=== PATIENT | male | born 1935 | race African-American/Black ===

== ENCOUNTER 2024-12-20 14:38 | Outpatient (CLI) | payer MEDICARE, SELFPAY ==
--- OUTSIDE RECORDS SUMMARY | 2010-01-04 05:45 | XMS_ITS | Continuity of Care Document ---
Author Organization [facility] Address [address] [place] [address] Phone Care Team Providers Care Final Application Reviewer Name Role Phone Mehrdad Florian Unavailable Unavailable Procedures Procedure Date Office/outpatient Visit, Est Optic Nerve Head Eval IPO Reduced 15% Fundus Photography W/ Report Eye Exam & Treatment Refraction Optic Nerve Head Eval IPO Reduced 15% Office/outpatient Visit, Est Optic Nerve Head Eval IPO Reduced 15% Visual Field Examination-Professional Romaine Visual Field Examination(s) Office/outpatient Visit, Est Optic Nerve Head Eval IPO Reduced 15% No Script Office/outpatient Visit, Est Optic Nerve Head Eval IPO Reduced 15% No Script Visual Field Examination-Professional Romaine -2008 Visual Field Examination(s) Office/outpatient Visit, Est Optic Nerve Head Eval Office/outpatient Visit, Est Optic Nerve Head Eval Office/outpatient Visit, Est Optic Nerve Head Eval Office/outpatient Visit, Est Fundus Photography W/ Report Optic Nerve Head Eval Visual Functional Status Assessed Visual Field Examination-Professional No v- Visual Field Examination(s) Office/outpatient Visit, Est Optic Nerve Head Eval Office/outpatient Visit, Est Advance Directives Directive Yes / No Effective Date File Name No Information Encounters Encounter Description Practice Location Reason(s) For Visit Diagnoses Date Provider Providers Copied on Encounter Office/outpat ient Visit, Est [facility], [address] [place] [address] [address], [place], [place], [address], tel:[phone] [facility] No Information 0 Chiqui Cronin. [address] [place] [address] , [address], [place], [place], [facility], . tel:[phone] Referring Provider: Mehrdad Davis, [address] [place] [address] [address], [place], [place], [facility]. tel:[phone] [facility], [address] [place] [address] [address], [place], [place], [address], [place] tel:[phone] [facility] No Information 0 0 Chiqui Cronin. [address] [place] [address] , [address], [place], [place], [facility], [place]. tel:[phone] Office/outpat ient Visit, Est [facility], [address] [place] [address] [address], [place], [place], [address], [place] tel:[phone] [facility] No Information 0 Krishnasamy Laron. [address] [place] [address] [address], [place], [place], [facility], [place]. tel:[phone] [facility], [address], [place], [place], [address], [place] tel:[phone] [facility] No Information 0 Krishnasamy Laron. [address], [address], [place]. tel:[phone] Referring Provider: Laron majano, [address] [place], [place] [address]ate [place] [address], [place], [facility]. tel:[phone] [facility], [address], [place], [place], [address], [place] tel:[phone] [facility] No Information 2-201 0 Krishnasamy Laron. [address] [place], [place] [address]ate [address], [facility], [place]. tel:[phone] Referring Provider: Laron majano, [address] [place] [address], [place], [facility]. tel:[phone] Office/outpat ient Visit, [facility], [address] [place] [address] [address], [place], [place], [address], [place] tel:[phone] [facility] No Information 5-200 9 Krishnasamy Laron. [address] [place] [address], [facility], [place]. tel:[phone] Office/outpat ient Visit, [facility], [address] [place] [address] [address], [place], [place], [address], [place] tel:[phone] [facility] No Information 2-200 9 Krishnasamy Laron. [address] [place], [place] [address]ate [address], [facility], [place]. tel:[phone] [facility], [address] [place] [address] [address], [place], [place], [address], [place] tel:[phone] [facility] No Information 3-200 9 Krishnasamy Laron. [address] [place] [address], [facility], [place]. tel:[phone] Referring Provider: Laron majano, [facility] Corporate [facility] [address], [place], [address]. tel:[phone] [facility], [address] [place] [address] [address], [place], [place], [address], [place] tel:[phone] [facility] No Information 9 Krishnasamy Laron. [address] [place], [place] [address]ate [facility] [address], [place], [facility], [place]. tel:[phone] Referring Provider: Laron majano, [address] [place], [place] [address]ate [facility] [address], [place], [facility]. tel:[phone] Office/outpat ient Visit, [facility], [address] [place] [address] [address], [place], [place], [address], [place] tel:[phone] [facility] No Information -200 8 Krishnasamy Laron. [address] [place], [place] [address]ate [address], [facility], [place]. tel:[phone] Office/outpat ient Visit, [facility], [address] [place] [address] [address], [place], [place], [address], [place] tel:[phone] [facility] No Information 8 Krishnasamy Laron. [address] [place], [place] [address]ate [facility] [address], [place], [facility], [place]. tel:[phone] Office/outpat ient Visit, [facility], [address] [place] [address] [address], [place], [place], [address], [place] tel:[phone] [facility] No Information 5- 8 Tg Jung. [address] [facility], [address], [place], [place], [address], [place]. tel:[phone] Office/outpat ient Visit, Est [facility], [address], [place], [place], [address], [place] tel:[phone] [facility] No Information 1-200 7 Wandavie Jung. [address], [place], [address], [place]. tel:[phone] Referring Provider: Erich Antionekaitlinbelkis Ryan, [address] [place], [address] . tel:[phone] [facility], [address], [place], [place], [address], tel:[phone] [facility] No Information 0-200 7 Wankbelkis Jung. [address], [place], [address], [place]. tel:[phone] Referring Provider: Erich Davis, [address], [place], [address] . tel:[phone] [facility], [address], [place], [place], [address], [place] tel:[phone] [facility] No Information 5-200 7 Wandavie Jung. [address], [address] [place], [address], [place]. tel:[phone] Referring Provider: Erich aDvis, [address] [place], [address] . tel:[phone] Office/outpat ient Visit, Est [facility], [address], [place], [place], [address], [place] tel:[phone] [facility] No Information 0-200 7 Wankbelkis Jung. [address], [place], [place], [address], [place]. tel:[phone] Office/outpat ient Visit, [facility], [address], [place], [place], [address], [place] tel:[phone] [facility] No Information 3-200 7 Tg Jung. [address], [address], [place], [place], [address], [place]. tel:[phone] Family History Family Member Type Diagnosis Age At Onset No Information Payers Payer name Insurance type Covered green party ID Authoriza tion(s) [place] [id number] [facility] Out Of State [id number] Social History Type Description Quantity Date Captured Comments Sex Male Smoking Status No Information Chief Complaint And Reason For Visit No Information Reason For Referral Reason For Referral No Information History Of Present Illness Encounter Date Complaint History Of Prese nt Illness No Information Functional Status Date Functional Assessmen t No Information Instructions Date Instruction Additional Infor mation No Information Assessments Type Assessment Date No Information Patient Care Teams Name Effective Dates (start - stop) Status Members No Information
--- OUTSIDE RECORDS SUMMARY | 2023-06-23 07:00 | XMS_ITS ---
Author Organization [facility] Address [address] [facility] [address] [facility] [address] [place] [address] Care Team Providers Care Piggyback Clerk Name Role Phone Yovanny Dominguez Unavailable [phone] Medications Medication SIG (Take, Route, Frequency, Duration) Notes Start Date End Date Status Calcitriol 0.25 MCG TAKE 1 CAPSULE BY [place] UTH EVERY DAY FOR 90 DAYS; Duration: 90 Active Vitamin D (Ergocalciferol) 1.25 MG (26239 UT) TAKE 1 CAPSULE BY MOUTH ONE TIME PER WEEK; Duration: 84 Active Social History Sex Assigned At : Social History Observation Description Sex Assigned At Male Encounters Encounter Location Date Provider Diagnosis [place] [facility] [address] [facility] 15 [place] [address] 06/23/2023 Yovanny Dominguez Chronic kidney disea se, stage 3a N18.31 ; Cyst of kidney, acquired N28.1 ; Essential (primary) hypertension I10 ; Proteinuria, unspecified R80.9 and Renal osteodystrophy N25.0 Assessments Encounter Date Diagnosis (ICD Code) Assessment Notes Treatment Notes Treatment Clinical Notes Section Notes 06/23/2023 Chronic kidney disease, stage 3a (ICD-10 - N18.31) 06/23/2023 Cyst of kidney, acquired (ICD-10 - N28.1) 06/23/2023 Essential (primary) hypertension (ICD-10 - I10) 06/23/2023 Proteinuria, unspecified (ICD-10 - R80.9) 06/23/2023 Renal osteodystrophy (ICD-10 - N25.0) Plan Of Treatment Next Appt Details Provider Name:Yovanny Dominguez , 12/30/2024 02:30:00 PM, [address] [facility], [facility] 15, [place], [address], Progress Notes * Brad SELLERS LDOB:1935 (89 yo M)Acc No.[id number]:06/23/2023 Progress Notes Patient: Brad BOSWELL Provider: Rhea GRECO MD, F.Ryan.Nazanin.P, F.A.S.N. :1935 A ge:87 Y S ex:Male Date:06/23/2023 Address:[address] [place] [address] Subjective: * Chief Complaints: * * Medical History: * Medications: T aking Vitamin D (Ergocalciferol) 1.25 MG (50713 UT) Capsule TAKE 1 CAPSULE BY MOUTH ONE TIME PER WEEK , Taking Calcitriol 0.25 MCG Capsule TAKE 1 CAPSULE BY MOUTH EVERY DAY FOR 90 DAYS Objective: * Vitals: Assessment: * Assessment: 1. C hronic kidney disease, stage 3a - N18.31 2 . C yst of kidney, acquired - N28.1 3 . E ssential (primary) hypertension - I10 4 . P roteinuria, unspecified - R80.9 5 . R enal osteodystrophy - N25.0 ? Plan: * Treatment: * Billing Information: * Visit Code: 34807 Office Visit, Est Pt., Level 4. * Procedure Codes: * Electronic signature of Raz Dominguez MD on 12/20/2024 at 02:48 PM CDT Sign off status: Pending * Provider: Rhea GRECO MD, Elijah.MorenaP, F.A.S.N. Date: 0 06/23/2023 Generated for Printing/Faxing/eTransmitting on: 02:48 PM CDT
--- OUTSIDE RECORDS SUMMARY | 2023-09-29 07:15 | XMS_ITS ---
Author Organization [facility] Address 1400 [facility] 61 [facility] [place] [address] [place] [address] Care Team Providers Care Volunteer Fire Fighter Name Role Phone Yovanny Dominguez Unavailable [phone] Medications Medication SIG (Take, Route, Frequency, Duration) Notes Start Date End Date Status Vitamin D (Ergocalciferol) 1.25 MG (84549 UT) TAKE 1 CAPSULE BY MOUTH ONE TIME PER WEEK; Duration: 84 Active Calcitriol 0.25 MCG TAKE 1 CAPSULE BY [place] UTH EVERY DAY FOR 90 DAYS; Duration: 90 Active Social History Sex Assigned At : Social History Observation Description Sex Assigned At Male Encounters Encounter Location Date Provider Diagnosis [place] [facility] 2043 [facility] 15 [place] [address] 09/29/2023 Yovanny Dominguez Chronic kidney disea se, [...] Name:Yovanny Singh , 12/30/2024 02:30:00 PM, 2043 [facility], [facility] [place] [address], [place], [address], Progress Notes * Brad SELLERS LDOB:1935 (89 yo M)Acc No.[id number]:09/29/2023 Progress Notes Patient: Brad BOSWELL Provider: Rhea GRECO MD, Elijah.MorenaP, F.A.S.N. :1935 A ge:87 Y S ex:Male Date:09/29/2023 Address:[address] [place] [address], [place] [address] Subjective: * Chief Complaints: * * Medical History: * Medications: T aking Vitamin D (Ergocalciferol) 1.25 MG (57409 UT) Capsule TAKE 1 CAPSULE BY MOUTH [...] Treatment: * Billing Information: * Visit Code: 44500 Office Visit, Est Pt., Level 4. * Procedure Codes: * Electronic signature of Raz Dominguez MD on 12/20/2024 at 02:47 PM CDT Sign off status: Pending * Provider: Rhea GRECO MD, LucreciaP, F.A.S.N. Date: 0 09/29/2023 Generated for Printing/Faxing/eTransmitting on: 02:47 PM CDT
--- OUTSIDE RECORDS SUMMARY | 2024-01-05 08:15 | XMS_ITS ---
Author Organization [facility] Address [address] [place] [address] [place] [address] Care Team Providers Care Ironer Machine Name Role Phone Raul Dominguezjit Unavailable [phone] Social History Sex Assigned At : Social History Observation Description Sex Assigned At Male Encounters Encounter Location Date Provider Diagnosis [place] [facility] 2043 [facility] 15 [place] [address] 01/05/2024 Yovanny Dominguez Chronic kidney disea se, [...] Name:Yovanny Singh , 12/30/2024 02:30:00 PM, 2043 [facility], [facility] 15, [place], [address], Progress Notes * Brad MOORE LDOB:1935 (89 yo M)Acc No.[id number]:01/05/2024 Progress Notes Patient: Brad BOSWELL Provider: Rhea GRECO MD, F.A.C.P, F.A.S.N. :1935 A ge:88 Y S ex:Male Date:01/05/2024 Address:[address] [place], [place] [address], [facility] Subjective: * Chief Complaints: * * Medical [...] Treatment: * Billing Information: * Visit Code: 88240 Office Visit, Est Pt., Level 4. * Procedure Codes: * Electronic signature of Raz Dominguez MD on 12/20/2024 at 02:48 PM CDT Sign off status: Pending * Provider: Rhea GRECO MD, F.A.C.P, F.A.S.N. Date: 03/06/2023 Generated for Printing/Faxing/eTransmitting on: 02:48 PM CDT
--- OUTSIDE RECORDS SUMMARY | 2024-03-29 07:30 | XMS_ITS ---
Author Organization [facility] Address [address] [place] [address] Care Team Providers Care Switchboard Receptionist Name Role Phone DominguezEliazarYovanny Unavailable [phone] Medications Medication SIG (Take, Route, Frequency, Duration) Notes Start Date End Date Status Calcitriol 0.25 MCG TAKE 1 CAPSULE BY MO UTH EVERY OTHER DAY; Duration: 90 Active Vitamin D (Ergocalciferol) 1.25 MG (82470 UT) TAKE 1 CAPSULE BY MOUTH ONCE A MONTH; Duration: 90 Activ e Social History Sex Assigned At : Social History Observation Description Sex Assigned At Male Problems Problem Type SNOMED Code ICD Code Onset Dates Problem Status W/U Status Risk Notes Problem Secondary hyperparathyroidism of renal origin (61218535) 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 [address], [place], [facility], Progress Notes * Brad SELLERS LDOB:1935 (89 yo M)Acc No.[id number]:03/29/2024 Progress Notes Patient: Brad BOSWELL Provider: Rhea GRECO MD, F.A.C.P, F.A.S.N. :1935 A ge:88 Y S ex:Male Date:03/29/2024 Address:[address] [place] [address] Subjective: * Chief Complaints: * * Medical History: * Medications: T aking Vitamin D (Ergocalciferol) 1.25 MG (03515 UT) Capsule TAKE 1 CAPSULE BY MOUTH [...] Treatment: * Billing Information: * Visit Code: 17596 Office Visit, Est Pt., Level 4. * Procedure Codes: * Electronic signature of Raz Dominguez MD on 12/20/2024 at 02:48 PM CDT Sign off status: Pending * Provider: Rhea GREOC MD, F.A.C.P, F.A.S.N. Date: 0 03/29/2024 Generated for Printing/Faxing/eTransmitting on: 1 02:48 PM CDT
--- OUTSIDE RECORDS SUMMARY | 2024-04-05 09:00 | XMS_ITS ---
Author Organization [facility] Address [address] [place] [address] Care Team Providers Care Laboratory Mechanical Technician Name Role Phone AlbertoEliazarYovanny Unavailable [phone] Social History Sex Assigned At : Social History Observation Description Sex Assigned At Male Problems Problem Type SNOMED Code ICD Code Onset Dates Problem Status W/U Status Risk Notes Problem Primary generalised osteoarthritis (101894252) Primary generalized (osteo)arthriti s (M15.0) Active confirmed Problem Diabetic renal disease (908612155) Type 2 diabetes mellitus with diabetic chronic kidney disease (E11.22) Active confirmed Encounters Encounter Location Date Provider Diagnosis [facility] [place] [facility] [address] [employer] [id number] 04/05/2024 Yovanny Dominguez Chronic kidney disea se, [...] Name:Yovanny Alberto , 12/30/2024 02:30:00 PM, 2043 [facility] 15[place], [address], Progress Notes * Brad SELLERS LDOB:1935 (89 yo M)Acc No.[id number]:04/05/2024 Progress Notes Patient: Brad BOSWELL Provider: Rhea GRECO MD, F.A.C.P, F.A.S.N. :1935 A ge:88 Y S ex:Male Date:04/05/2024 Address:[address] [place] [address] Subjective: * Chief Complaints: * * Medical [...] Treatment: * Billing Information: * Visit Code: 14086 Office Visit, Est Pt., Level 4. * Procedure Codes: * Electronic signature of Raz Dominguez MD on 12/20/2024 at 02:47 PM CDT Sign off status: Pending * Provider: Rhea GRECO MD, F.A.C.P, F.A.S.N. Date: 0 04/05/2024 Generated for Printing/Faxing/eTransmitting on: 1 02:47 PM CDT
--- OUTSIDE RECORDS SUMMARY | 2024-05-03 08:15 | XMS_ITS ---
Author Organization [facility] Address [address] [address] [place] [address] Care Team Providers Care Sales Representative [employer] Name Role Phone Alberto Yovanny Unavailable [phone] Social History Sex Assigned At : Social History Observation Description Sex Assigned At Male Problems Problem Type SNOMED Code ICD Code Onset Dates Problem Status W/U Status Risk Notes Problem Elevation of levels of liver transaminase levels (R74.01) Active confirmed Problem Hypernatremia (147743997) Hypernatremia (E87.0) Active confirmed Encounters Encounter Location Date Provider Diagnosis [place] [facility] 2043 [facility] 15 [place] [address] 05/03/2024 Yovanny Dominguez Chronic kidney disea se, [...] Name:Yovanny Alberto , 12/30/2024 02:30:00 PM, 2043 [facility], [facility] 15, [place], [address], Progress Notes * Brad SELLERS LDOB:1935 (89 yo M)Acc No.[id number]:05/03/2024 Progress Notes Patient: Brad BOSWELL Provider: Rhea GRECO MD, F.A.C.P, F.A.S.N. :1935 A ge:88 Y S ex:Male Date:05/03/2024 Address:[address] [place] [address] Subjective: * Chief Complaints: * * Medical [...] Treatment: * Billing Information: * Visit Code: 63814 Office Visit, Est Pt., Level 4. * Procedure Codes: * Electronic signature of Raz Dominguez MD on 12/20/2024 at 02:48 PM CDT Sign off status: Pending * Provider: Rhea GRECO MD, F.A.C.P, F.A.S.N. Date: 0 05/03/2024 Generated for Printing/Faxing/eTransmitting on: 1 02:48 PM CDT
--- OUTSIDE RECORDS SUMMARY | 2024-07-19 08:00 | XMS_ITS ---
Author Organization [facility] Address [address] [address] [place] [address] Care Team Providers Care Farm Contractor Buyer Name Role Phone Alberto Yovanny Unavailable [phone] Social History Sex Assigned At : Social History Observation Description Sex Assigned At Male Encounters Encounter Location Date Provider Diagnosis [place] [facility] 2043 [facility] 15 [place] [address] 07/19/2024 Yovanny Dominguez Chronic kidney disea se, [...] Name:Yovanny Dominguez , 12/30/2024 02:30:00 PM, 2043 [facility] 15[place], [address], Progress Notes * Brad SELLERS LDOB:1935 (89 yo M)Acc No.[id number]:07/19/2024 Progress Notes Patient: Bard BOSWELL Provider: Rhea GRECO MD, F.A.C.P, F.A.S.N. :1935 A ge:88 Y S ex:Male Date:07/19/2024 Address:[address] [place] [address] Subjective: * Chief Complaints: * * Medical [...] Treatment: * Billing Information: * Visit Code: 39788 Office Visit, Est Pt., Level 4. * Procedure Codes: * Electronic signature of Raz Dominguez MD on 12/20/2024 at 02:47 PM CDT Sign off status: Pending * Provider: Rhea GRECO MD, F.A.C.P, F.A.S.N. Date: 0 07/19/2024 Generated for Printing/Faxing/eTransmitting on: 1 02:47 PM CDT
--- OUTSIDE RECORDS SUMMARY | 2024-10-18 08:00 | XMS_ITS ---
Author Organization [facility] Address [address] [address] [place] [address] Care Team Providers Care Hair Machine Operator Name Role Phone Alberto Yovanny Unavailable [phone] Social History Sex Assigned At : Social History Observation Description Sex Assigned At Male Problems Problem Type SNOMED Code ICD Code Onset Dates Problem Status W/U Status Risk Notes Problem Vitamin D deficiency (81199386) Vitamin D deficiency, unspecified (E55.9) Active confirmed Encounters Encounter Location Date Provider Diagnosis [place] [facility] 2043 [facility] 15 [place] [address] 10/18/2024 Yovanny Dominguez Chronic kidney disea se, [...] Name:Yovanny Alberto , 12/30/2024 02:30:00 PM, [address], [address], Progress Notes * Brad SELLERS LDOB:1935 (89 yo M)Acc No.[id number]:10/18/2024 Progress Notes Patient: Brad BOSWELL Provider: Rhea GRECO MD, F.A.C.P, F.A.S.N. :1935 A ge:88 Y S ex:Male Date:10/18/2024 Address:[address] [place], [place] [id number] Subjective: * Chief Complaints: Objective: Assessment: * [...] Plan: * Billing Information: * Visit Code: 15379 Office Visit, Est Pt., Level 4. * Procedure Codes: * Electronic signature of Raz Dominguez MD on 12/20/2024 at 02:47 PM CDT Sign off status: Pending * Provider: Rhea GRECO MD, F.A.C.P, F.A.S.N. Date: 0 10/18/2024 Generated for Printing/Faxing/eTransmitting on: 02:47 PM CDT
--- OUTSIDE RECORDS SUMMARY | 2024-12-20 14:48 | XMS_ITS | Patient Health Record ---
Author Organization [facility] Address [address] [place] [address] Care Team Providers Care Blockmason Name Role Phone Yovanny Dominguez Unavailable [phone] Reason For Referral No Information Medications Medication SIG (Take, Route, Frequency, Duration) Notes Start Date End Date Status Calcitriol 0.25 MCG TAKE 1 CAPSULE BY MO UTH EVERY OTHER DAY; Duration: 90 Active Vitamin D (Ergocalciferol) 1.25 MG (37790 UT) TAKE 1 CAPSULE BY MOUTH ONCE A MONTH; Duration: 90 Activ e Social History Sex Assigned At : Social History Observation Description Sex Assigned At Male Problems Problem Type SNOMED Code ICD Code Onset Dates Problem Status W/U Status Risk Notes Problem Diabetic renal disease (003754923) Type 2 diabetes mellitus with diabetic chronic kidney disease (E11.22) Active confirmed Problem Vitamin D deficiency (45513307) Vitamin D deficiency, unspecified (E55.9) Active confirmed Problem Hypervitaminosis D (21971220) 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) Active confirmed Problem Essential hypertension (27904443) Essential (primary) hypertension (I10) Active confirmed Problem Primary generalised osteoarthritis (595302566) Primary generalized (osteo)arthritis (M15.0) Active confirmed Problem Renal osteodystrophy (36372564) Renal osteodystrophy (N25.0) Active confirmed Problem Secondary hyperparathyroidism of renal origin (48673925) Secondary hyperparathyroidism of renal origin (N25.81) Active confirmed Problem Acquired renal cysti c disease (575266289) Cyst of kidney, acquired (N28.1) Active confirmed Problem Proteinuria (12174409) Proteinuria, unspecified (R80.9) Active confirmed Problem Hypernatremia (829775647) Hypernatremia (E87.0) Active confirmed Problem Chronic kidney disease stage 3A (disorder) (646625262) Chronic kidney disease, stage 3a (N18.31) Active confirmed Problem Elevation of lev els of liver transaminase levels (R74.01) Active confirmed Encounters Encounter Location Date Provider Diagnosis [facility] [address] [place] [address] 01/05/2024 Yovanny Dominguez Chronic kidney disea se, stage 3a N18.31 ; Cyst of kidney, acquired N28.1 ; Essential (primary) hypertension I10 ; Proteinuria, unspecified R80.9 and Renal osteodystrophy N25.0 [facility] [address] [place] [address] 03/29/2024 Yovanny Dominguez Chronic kidney disea se, stage 3a N18.31 ; Cyst of kidney, acquired N28.1 ; Essential (primary) hypertension I10 ; Proteinuria, unspecified R80.9 ; Renal osteodystrophy N25.0 ; Elevation of levels of liver transaminase levels R74.01 ; 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 and 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 [facility] [address] [place] [address] 04/05/2024 Yovannyagustin Dominguez Chronic kidney disea se, stage 3a N18.31 ; Cyst of kidney, acquired N28.1 ; Essential (primary) hypertension I10 ; Proteinuria, unspecified R80.9 ; Renal osteodystrophy N25.0 ; 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 ; 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 ; Elevation of levels of liver transaminase levels R74.01 ; Primary generalized (osteo)arthritis M15.0 and Type 2 diabetes mellitus with diabetic chronic kidney disease E11.22 [facility] [address] [place] [address] 05/03/2024 Yovannyagustin Dominguez Chronic kidney disea se, stage 3a [...] liver transaminase levels R74.01 and Hypernatremia E87.0 [facility] [address] [place] [id number] 07/19/2024 Yovanny Dominguez Chronic kidney disea se, [...] liver transaminase levels R74.01 and Hypernatremia E87.0 [facility] [address] [address] 10/18/2024 Yovanny Dominguez Chronic kidney disea se, [...] Clinical Notes Section Notes 01/05/2024 Chronic kidney disea se, stage 3a (ICD-10 - N18.31) 03/29/2024 Cyst of kidney, acquired (ICD-10 - N28.1) 03/29/2024 Chronic kidney disea se, stage 3a (ICD-10 - N18.31) 04/05/2024 Cyst of kidney, acquired (ICD-10 - N28.1) 04/05/2024 Chronic kidney disea se, stage 3a (ICD-10 - N18.31) 05/03/2024 Chronic kidney disea se, stage 3a (ICD-10 - N18.31) 07/19/2024 Chronic kidney disea se, stage 3a (ICD-10 - N18.31) 10/18/2024 Chronic kidney disea se, stage 3a (ICD-10 - N18.31) 10/18/2024 Cyst of kidney, acquired (ICD-10 - N28.1) 07/19/2024 Cyst of kidney, acquired (ICD-10 - N28.1) 05/03/2024 Cyst of kidney, acquired (ICD-10 - N28.1) 04/05/2024 Essential (primary) hypertension (ICD-10 - I10) 03/29/2024 Essential (primary) hypertension (ICD-10 - I10) 01/05/2024 Cyst of kidney, acquired (ICD-10 - N28.1) 01/05/2024 Essential (primary) hypertension (ICD-10 - I10) 03/29/2024 Proteinuria, unspecified (ICD-10 - R80.9) 04/05/2024 Proteinuria, unspecified (ICD-10 - R80.9) 05/03/2024 Essential (primary) hypertension (ICD-10 - I10) 07/19/2024 Essential (primary) hypertension (ICD-10 - I10) 10/18/2024 Essential (primary) hypertension (ICD-10 - I10) 07/19/2024 Proteinuria, unspecified (ICD-10 - R80.9) 10/18/2024 Proteinuria, unspecified (ICD-10 - R80.9) 05/03/2024 Proteinuria, unspecified (ICD-10 - R80.9) 04/05/2024 Renal osteodystrophy (ICD-10 - N25.0) 03/29/2024 Renal osteodystrophy (ICD-10 - N25.0) 01/05/2024 Proteinuria, unspecified (ICD-10 - R80.9) 01/05/2024 Renal osteodystrophy (ICD-10 - N25.0) 03/29/2024 Elevation of levels of liver transaminase levels (ICD-10 - R74.01) 04/05/2024 Secondary hyperparathyroidism of renal origin (ICD-10 - N25.81) 05/03/2024 Renal osteodystrophy (ICD-10 - N25.0) 07/19/2024 Renal osteodystrophy (ICD-10 - N25.0) 10/18/2024 Renal osteodystrophy (ICD-10 - N25.0) 10/18/2024 Secondary hyperparathyroidism of renal origin (ICD-10 - N25.81) 07/19/2024 Secondary hyperparathyroidism of renal origin (ICD-10 - N25.81) 05/03/2024 Secondary hyperparathyroidism of renal origin (ICD-10 - N25.81) 04/05/2024 Hypervitaminosis D (ICD-10 - E67.3) 03/29/2024 Secondary hyperparathyroidism of renal origin (ICD-10 - N25.81) 03/29/2024 Hypervitaminosis D (ICD-10 - E67.3) 04/05/2024 Elevation of levels of liver transaminase levels (ICD-10 - R74.01) 05/03/2024 Hypervitaminosis D (ICD-10 - E67.3) 07/19/2024 Hypervitaminosis D (ICD-10 - E67.3) 10/18/2024 Hypervitaminosis D (ICD-10 - E67.3) 10/18/2024 Primary generalized (osteo)arthritis (ICD-10 - M15.0) 07/19/2024 Primary generalized (osteo)arthritis (ICD-10 - M15.0) 05/03/2024 Primary generalized (osteo)arthritis (ICD-10 - M15.0) 04/05/2024 Primary generalized (osteo)arthritis (ICD-10 - M15.0) 05/03/2024 Type 2 diabetes mellitus with diabetic chronic kidney disease (ICD-10 - E11.22) 04/05/2024 Type 2 diabetes mellitus with diabetic chronic kidney disease (ICD-10 - E11.22) 07/19/2024 Type 2 diabetes mellitus with diabetic chronic kidney disease (ICD-10 - E11.22) 10/18/2024 Type 2 diabetes mellitus with diabetic chronic kidney disease (ICD-10 - E11.22) 07/19/2024 Elevation of levels of liver transaminase levels (ICD-10 - R74.01) 10/18/2024 Elevation of levels of liver transaminase levels (ICD-10 - R74.01) 05/03/2024 Elevation of levels of liver transaminase levels (ICD-10 - R74.01) 05/03/2024 Hypernatremia (ICD-1 0 - E87.0) 10/18/2024 Hypernatremia (ICD-1 0 - E87.0) 07/19/2024 Hypernatremia (ICD-1 0 - E87.0) 10/18/2024 Vitamin D deficiency , unspecified (ICD-10 - E55.9) Plan Of Treatment Next Appt Details Provider Name:Yovanny Dominguez , 12/30/2024 02:30:00 PM, [address], [facility] [address], [place], [address],
--- OUTSIDE RECORDS SUMMARY | 2024-12-20 14:48 | XMS_ITS | Data Portability ---
Author Organization [place] [facility], Main Office Address [address] [place] [id number] Assessment Encounter Date Assessment Date Assessment LastModified by Organization Details LastModified Time 06/01/2023 06/01/2023 04/28/2022: ALP isoenzymes: 78% bone TSH/FT4/GGT/L ipids: WNL CMP: BUN 21/Cr 1.38, GFR 59, ALP 368H, bili t 1.70 CBC: WBC 4.0 07/28/2022: B12 >1000 Folate/TSH/FT 4/Lipids/CBC: WNL ALP 336, T bili 1.40 11/24/2022: BUN 20/Cr 1.45, GFR 56, ALP 312, bili t 1.50H CBC: WBC 4.1 05/25/2023: BUN 29, Cr 1.57, GFR 51, ALP 356, Bili 2.00H Not available 06/01/2023 12:17:17 10/05/2023 10/05/2023 04/28/2022: ALP isoenzymes: 78% bone TSH/FT4/GGT/L ipids: WNL CMP: BUN 21/Cr 1.38, GFR 59, ALP 368H, bili t 1.70 CBC: WBC 4.0 07/28/2022: B12 >1000 Folate/TSH/FT 4/Lipids/CBC: WNL ALP 336, T bili 1.40 11/24/2022: BUN 20/Cr 1.45, GFR 56, ALP 312, bili t 1.50H CBC: WBC 4.1 05/25/2023: BUN 29, Cr 1.57, GFR 51, ALP 356, Bili 2.00H 09/28/2023: Cr 1.37, ALP 299, Bili 1.80 [email or web address] [id number] Not available 10/04/2023 14:11:06 04/04/2024 04/04/2024 04/28/2022: ALP isoenzymes: 78% bone TSH/FT4/GGT/L ipids: WNL CMP: BUN 21/Cr 1.38, GFR 59, ALP 368H, bili t 1.70 CBC: WBC 4.0 07/28/2022: B12 >1000 Folate/TSH/FT 4/Lipids/CBC: WNL ALP 336, T bili 1.40 11/24/2022: BUN 20/Cr 1.45, GFR 56, ALP 312, bili t 1.50H CBC: WBC 4.1 05/25/2023: BUN 29, Cr 1.57, GFR 51, ALP 356, Bili 2.00H 09/28/2023: Cr 1.37, ALP 299, Bili 1.80 04/01/2024: Na 146, Cr 1.43, GFR 57, ALP 283, Bili 1.70H WBC 3.9L [email or web address] [id number] Not available 04/04/2024 11:58:09 07/04/2024 07/04/2024 04/28/2022: ALP isoenzymes: 78% bone TSH/FT4/GGT/L ipids: WNL CMP: BUN 21/Cr 1.38, GFR 59, ALP 368H, bili t 1.70 CBC: WBC 4.0 07/28/2022: B12 >1000 Folate/TSH/FT 4/Lipids/CBC: WNL ALP 336, T bili 1.40 11/24/2022: BUN 20/Cr 1.45, GFR 56, ALP 312, bili t 1.50H CBC: WBC 4.1 05/25/2023: BUN 29, Cr 1.57, GFR 51, ALP 356, Bili 2.00H 09/28/2023: Cr 1.37, ALP 299, Bili 1.80 04/01/2024: Na 146, Cr 1.43, GFR 57, ALP 283, Bili 1.70H WBC 3.9L 06/28/2024: BUN/Cr/GFR 20/1.55/52, Bili 1.50H WBC 4.1L [email or web address] Not available 07/04/2024 11:07:47 11/07/2024 11/07/2024 04/28/2022: ALP isoenzymes: 78% bone TSH/FT4/GGT/L ipids: WNL CMP: BUN 21/Cr 1.38, GFR 59, ALP 368H, bili t 1.70 CBC: WBC 4.0 07/28/2022: B12 >1000 Folate/TSH/FT 4/Lipids/CBC: WNL ALP 336, T bili 1.40 11/24/2022: BUN 20/Cr 1.45, GFR 56, ALP 312, bili t 1.50H CBC: WBC 4.1 05/25/2023: BUN 29, Cr 1.57, GFR 51, ALP 356, Bili 2.00H 09/28/2023: Cr 1.37, ALP 299, Bili 1.80 04/01/2024: Na 146, Cr 1.43, GFR 57, ALP 283, Bili 1.70H WBC 3.9L 06/28/2024: BUN/Cr/GFR 20/1.55/52, Bili 1.50H WBC 4.1L 10/11/2024: WBC 3.9 Cr 1.32, ALP 300, T bili 1.70 Not available 11/07/2024 11:33:17 Plan of Treatment Reminders Order Date Submit Date Provider Last Modified By Organization Details Last Modified Time Details Appointments Follow Up 15 2025 10:30A Kaylee crow MD Not available Not available Not available Lab vitamin D, 25-hydrox y, total, serum [email or web address], [address] [place], [address], 11/08/2024 16:02:35 lipid panel, serum [email or web address], [address] [place], [address], 11/08/2024 16:02:34 CMP, serum or plasma [address], [address] [place], [address], 11/08/2024 16:02:34 TSH, serum or plasma [address], [address] [place], [address], 11/08/2024 16:02:34 CBC w/ auto diff [address], [address] [place], [address], 11/08/2024 16:02:35 T4, free, serum [address], [address] [place], [address], 11/08/2024 16:02:35 vitamin D, 25-hydrox y, total, serum [address], [address] [place], [address], 07/04/2024 17:00:46 lipid panel, serum 2024 025 [facility], [address] [place], [address], 10/11/2024 13:01:58 CMP, serum or plasma 2024 025 [facility], [address] [place], [address], 10/11/2024 13:02:04 TSH, serum or plasma 2024 025 [facility], [address] [place], [address], 10/11/2024 13:30:57 CBC w/ auto diff 2024 025 [facility], [address] [place], [address], 10/11/2024 13:07:58 T4, free, serum 2024 025 [facility], [address] [place], [address], 10/11/2024 13:29:55 vitamin D, 25-hydrox y, total, serum [address], [address] [place], [address], 10/01/2024 09:07:24 lipid panel, serum 2024 025 [facility], [address] [place], [address], 06/28/2024 13:55:49 CMP, serum or plasma 2024 025 [facility], [address] [place], [address], 06/28/2024 13:55:58 TSH, serum or plasma 2024 025 [facility], [address] [place], [address], 06/28/2024 14:27:26 CBC w/ auto diff 2024 025 [facility], [address] [place], [address], 06/28/2024 13:19:38 T4, free, serum 2024 025 [facility], [address] [place], [address], 06/28/2024 14:11:27 vitamin D, 25-hydrox y, total, serum [address], [address] [place], [address], 04/02/2024 11:17:09 lipid panel, serum 2023 024 [facility], [address] [place], [address], 04/01/2024 11:48:37 CMP, serum or plasma 2023 024 [facility], [address] [place], [address], 04/01/2024 11:48:43 TSH, serum or plasma 2023 024 [facility], [address] [place], [address], 04/01/2024 12:12:41 CBC w/ auto diff 2023 024 [facility], [address] [place], [address], 04/01/2024 11:16:17 T4, free, serum 2023 024 [facility], [address] [place], [address], 04/01/2024 11:58:00 vitamin D, 25-hydrox y, total, serum [email or web address], [address] [place], [address], 11/28/2023 09:09:07 lipid panel, serum 2023 024 [facility], [address] [place], [address], 09/28/2023 13:31:47 CMP, serum or plasma 2023 024 [facility], [address] [place], [address], 09/28/2023 13:31:53 TSH, serum or plasma 2023 024 [facility], [address] [place], [address], 09/28/2023 14:00:59 CBC w/ auto diff 2023 024 [facility], [address] [place], [address], 09/28/2023 13:27:53 T4, free, serum 2023 024 [facility], [address] [place], [address], 09/28/2023 13:39:57 Referral nephrolog ist referral - Please call patient to schedule an appointme nt. Thank you. 2024 Ludmila Dominguez MD (Nephrology, [address], [address], [place], [address], 07/09/2024 08:57:47 endocrino logy referral - Please call patient to schedule an appointme nt. Thank you. 2024 Ludmila Alfaro MD, [address], [place], [address], 07/03/2024 16:37:52 nephrolog ist referral 2023 Ary Dominguez MD (Nephrology, [address], [address], [place], [address], 04/02/2024 11:17:24 endocrino logy referral 2023 Ary Alfaro MD, [address], [place], [address], 04/02/2024 11:17:25 nephrolog ist referral 2023 Ary Dominguez MD (Nephrology, [address], [address], [place], [address], 11/28/2023 09:09:30 endocrino logy referral 2023 024 Tay Alfaro MD, [address], [place], [address], 11/28/2023 09:10:01 Procedures None recorded. Surgeries None recorded. Imaging US, abdomen, complete 2023 024 [email or web address] [facility] ([facility]), [address], [place], [address], 11/06/2023 10:11:54 Medication Orders None recorded. Patient TargetsNo targets recorded. Patient InstructionsNo instructions recorded. Reason for Referral Cleaning Matron Referral for Al kaline phosphatase above reference range Referring Physician: Latasha Sarmiento Medicine, Encounter Date: 06/01/2023 Endocrinology Referral for A lkaline phosphatase above reference range Referring Physician: Latasha Sarmiento Medicine, Encounter Date: 06/01/2023 Cleaning Matron Referral for Al kaline phosphatase above reference range Referring Physician: Latasha Sarmiento Medicine, Encounter Date: 10/05/2023 Endocrinology Referral for A lkaline phosphatase above reference range Referring Physician: Latasha Sarmiento Medicine, Encounter Date: 10/05/2023 Cle[facility]ron Referral for Al kaline phosphatase above reference range Please call patient to schedule an appointment. Thank you. Referring Physician: Latasha Sarmiento Medicine, Encounter Date: 04/04/2024 Endocrinology Referral for A lkaline phosphatase above reference range Please call patient to schedule an appointment. Thank you. Referring Physician: Latasha Sarmiento Medicine, Encounter Date: 04/04/2024 Results Created Date Observation Date Name Description Value Unit Range Abnormal Flag Note LastModifiedBy Organization Detail LastModifiedTime 05/25/19 24 05/25/2023 CBC/C OMPLE TE BLD COUNT W/DIF F white blood cells 4.6 x10'3 /uL 4.2-10 .8 Not Available [facility] (Lab) [address] [place], [address], 05/25/2023 15:43:02 05/25/19 24 05/25/2023 CBC/C OMPLE TE BLD COUNT W/DIF F red blood cells 4.96 x10'6 /uL 4.10-5 .80 Not Available [facility] (Lab) [address] [place], [address], 05/25/2023 15:43:02 05/25/19 24 05/25/2023 CBC/C OMPLE TE BLD COUNT W/DIF F hemoglobin 15.6 g/dL 13.2-1 7.0 Not Available [facility] (Lab) [address] [place], [address], 05/25/2023 15:43:02 05/25/19 24 05/25/2023 CBC/C OMPLE TE BLD COUNT W/DIF F hematocrit 46.6 % 39.3-5 0.0 Not Available [facility] (Lab) [address] [place], [address], 05/25/2023 15:43:02 05/25/19 24 05/25/2023 CBC/C OMPLE TE BLD COUNT W/DIF F mean red cell volume 94.0 fL 80.0-9 7.0 Not Available [facility] (Lab) [address] [place], [address], 05/25/2023 15:43:02 05/25/19 24 05/25/2023 CBC/C OMPLE TE BLD COUNT W/DIF F mean red cell hemoglobin 31.5 pg 27.0-3 3.0 Not Available [facility] (Lab) [address] [place], [address], 05/25/2023 15:43:02 05/25/19 24 05/25/2023 CBC/C OMPLE TE BLD COUNT W/DIF F mean RBC HGB concentratio n 33.5 g/dL 31.0-3 6.0 Not Available [facility] (Lab) [address] [place], [address], 05/25/2023 15:43:02 05/25/19 24 05/25/2023 CBC/C OMPLE TE BLD COUNT W/DIF F red cell distribution width 12.7 % 11.8-1 5.5 Not Available [facility] (Lab) [address] [place], [address], 05/25/2023 15:43:02 05/25/19 24 05/25/2023 CBC/C OMPLE TE BLD COUNT W/DIF F platelets 216 x10'3 /uL 150-40 0 Not Available [facility] (Lab) [address] [place], [address], 05/25/2023 15:43:02 05/25/19 24 05/25/2023 CBC/C OMPLE TE BLD COUNT W/DIF F mean platelet volume 10.3 fL 9.0-12 .4 Not Available [facility] (Lab) [address] [place], [address], 05/25/2023 15:43:02 05/25/19 24 05/25/2023 CBC/C OMPLE TE BLD COUNT W/DIF F neutrophils 58.2 % 39.0-7 2.0 Not Available [facility] (Lab) [address] [place], [address], 05/25/2023 15:43:02 05/25/19 24 05/25/2023 CBC/C OMPLE TE BLD COUNT W/DIF F lymphocytes 29.4 % 16.0-4 7.0 Not Available [facility] (Lab) [address] [place], [address], 05/25/2023 15:43:02 05/25/19 24 05/25/2023 CBC/C OMPLE TE BLD COUNT W/DIF F monocytes 8.7 % 5.0-12 .0 Not Available [facility] (Lab) [address] [place], [address], 05/25/2023 15:43:02 05/25/19 24 05/25/2023 CBC/C OMPLE TE BLD COUNT W/DIF F eosinophils 2.4 % 1.0-7. 0 Not Available [facility] (Lab) [address] [place], [address], 05/25/2023 15:43:02 05/25/19 24 05/25/2023 CBC/C OMPLE TE BLD COUNT W/DIF F basophils 1.1 % 0.0-2. 0 Not Available [facility] (Lab) [address] [place], [address], 05/25/2023 15:43:02 05/25/19 24 05/25/2023 CBC/C OMPLE TE BLD COUNT W/DIF F immature granulocytes 0.2 % 0.00-0 .50 Not Available [facility] (Lab) [address] [place], [address], 05/25/2023 15:43:02 05/25/19 24 05/25/2023 CBC/C OMPLE TE BLD COUNT W/DIF F neutrophils, absolute count 2.69 x10'3 /uL 1.5-8. 0 Not Available [facility] (Lab) [address] [place], [address], 05/25/2023 15:43:02 05/25/19 24 05/25/2023 CBC/C OMPLE TE BLD COUNT W/DIF F lymphocytes, absolute count 1.36 x10'3 /uL 1.07-3 .43 Not Available [facility] (Lab) [address] [place], [address], 05/25/2023 15:43:02 05/25/19 24 05/25/2023 CBC/C OMPLE TE BLD COUNT W/DIF F monocytes, absolute count 0.40 x10'3 /uL 0.29-0 .99 Not Available [facility] (Lab) [address] [place], [address], 05/25/2023 15:43:02 05/25/19 24 05/25/2023 CBC/C OMPLE TE BLD COUNT W/DIF F eosinophils, absolute count 0.11 x10'3 /uL 0.02-0 .53 Not Available [facility] (Lab) [address] [place], [address], 05/25/2023 15:43:02 05/25/19 24 05/25/2023 CBC/C OMPLE TE BLD COUNT W/DIF F basophils, absolute count 0.05 x10'3 /uL 0.01-0 .08 Not Available [facility] (Lab) [address] [place], [address], 05/25/2023 15:43:02 05/25/19 24 05/25/2023 CBC/C OMPLE TE BLD COUNT W/DIF F immature granulocytes ,absolute 0.01 x10'3 /uL 0.00-0 .05 Not Available [facility] (Lab) [address] [place], [address], 05/25/2023 15:43:02 05/25/19 24 05/25/2023 CBC/C OMPLE TE BLD COUNT W/DIF F nucleated red blood cells 0.0 % -0 Not Available [facility] (Lab) [address] [place], [address], 05/25/2023 15:43:02 05/25/19 24 05/25/2023 CBC/C OMPLE TE BLD COUNT W/DIF F NRBC# 0.00 x10'3 /uL Not Available [facility] (Lab) [address] [place], [address], 05/25/2023 15:43:02 05/25/19 24 05/25/2023 LIPID PANEL cholesterol 167 mg/dL 140-19 9 NIH BRIGITTE NSUS RECOM MENDA TION FOR ANTHONY STERO L: ADULT CHILD LOW RISK: <200 <170 BORDE RLINE : <200- 239 ----- HIGH RISK: >240 >200 Not Available [facility] (Lab) [address] [place], [address], 05/25/2023 16:08:29 05/25/19 24 05/25/2023 LIPID PANEL triglyceride s 109 mg/dL 0-150 NIH BRIGITTE NSUS REPOR T RECOM MENDA TION FOR TRIGL YCERI TERRENCE: ADULT CHILD LOW RISK: <150 ----- BODER LINE: 150-1 99 ----- HIGH RISK: >200 ----- Not Available [facility] (Lab) [address] [place], [address], 05/25/2023 16:08:29 05/25/19 24 05/25/2023 LIPID PANEL HDL cholesterol 71 mg/dL 40- Not Available [facility] (Lab) [address] [place], [address], 05/25/2023 16:08:29 05/25/19 24 05/25/2023 LIPID PANEL LDL cholesterol, calculated 74 mg/dL 0-130 NIH BRIGITTE NSUS REPOR T RECOM MENDA TIONS FOR LDL: ADULT CHILD LOW RISK <130 <110 (OPTI MAL LDL) <100 ----- BORDE RLINE : 130-1 59 ----- HIGH RISK: >160 >130 A TRIGL YCERI DE RESUL T >400 INVAL IDATE S THE CALCU LATIO N FOR LDL FRACT IONAT ION - THE LDL RESUL T WILL NOT BE REPOR YARELIS. Not Available [facility] (Lab) [address] [place], [address], 05/25/2023 16:08:29 05/25/19 24 05/25/2023 COMPR EHENS DWIGHT METAB OLIC PANEL sodium 142 mmol/ L 137-14 5 Not Available [facility] (Lab) [address] [place], [address], 05/25/2023 16:08:51 05/25/19 24 05/25/2023 COMPR EHENS DWIGHT METAB OLIC PANEL potassium 4.2 mmol/ L 3.5-5. 1 Not Available [facility] (Lab) [address] [facility] [place], [address], 05/25/2023 16:08:51 05/25/19 24 05/25/2023 COMPR EHENS DWIGHT METAB OLIC PANEL chloride 108 mmol/ L 98-107 high Not Available [facility] (Lab) [address] [place], [address], 05/25/2023 16:08:51 05/25/19 24 05/25/2023 COMPR EHENS DWIGHT METAB OLIC PANEL carbon dioxide 30 mmol/ L 22-30 Not Available [facility] (Lab) [address] [place], [address], 05/25/2023 16:08:51 05/25/19 24 05/25/2023 COMPR EHENS DWIGHT METAB OLIC PANEL anion gap 8.2 mmol/ L 14-22 low Not Available [facility] (Lab) [address] [place], [address], 05/25/2023 16:08:51 05/25/19 24 05/25/2023 COMPR EHENS DWIGHT METAB OLIC PANEL glucose 86 mg/dL 70-99 Not Available [facility] (Lab) [address] [place], [address], 05/25/2023 16:08:51 05/25/19 24 05/25/2023 COMPR EHENS DWIGHT METAB OLIC PANEL BUN 29 mg/dL 8-19 high Not Available [facility] (Lab) [address] [place], [address], 05/25/2023 16:08:51 05/25/19 24 05/25/2023 COMPR EHENS DWIGHT METAB OLIC PANEL creatinine 1.57 mg/dL 0.66-1 .25 high Not Available [facility] (Lab) [address] [place], [address], 05/25/2023 16:08:51 05/25/19 24 05/25/2023 COMPR EHENS DWIGHT METAB OLIC PANEL GFR 51 Refer ence Range : [place] ge GFR Healt hy Adult : >60 mL/mi n/1.7 3 m2 Chron ic Kidne y Disea se: 15-60 mL/mi n/1.7 3 m2 Kidne y Failu re: <15/m L/min /1.73 m2 www.n iddk. nih.g ov The MDRD study equat ion has not been valid ated in child macy <18 years of age; pregn ant women ; the elder ly >85 years of age; or in some racia l or ethni c subgr oups, such as Hisor nics. Outsi de the valid ated marquise eters , estim ated GFR is less accur ate, requi ring clini alfredo judgm ent on a case- by-ca se basis . Clini alfredo inter preta tion for other races and ages must be made by the clini yane. The MDRD study equat ion has not been valid ated for the evalu ation of serum creat inine relat ed to nutri gretel l statu s or medic ation usage . For perso ns <18 years of age, a pedia tric GFR calcu lator is avail able on the NKF websi te: https ://suzanna w.yenny marcus.o rg/pr ofess ional s/kdo qi/gf r_cal culat or Not Available [facility] (Lab) [address] [place], [address], 05/25/2023 16:08:51 05/25/19 24 05/25/2023 COMPR EHENS DWIGHT METAB OLIC PANEL alkaline phosphatase 356 U/L 38-126 high Not Available [facility] (Lab) [address] [place], [address], 05/25/2023 16:08:51 05/25/19 24 05/25/2023 COMPR EHENS DWIGHT METAB OLIC PANEL alanine aminotransfe rase 20 U/L 0-50 Not Available [facility] (Lab) [address] [place], [address], 05/25/2023 16:08:51 05/25/19 24 05/25/2023 COMPR EHENS DWIGHT METAB OLIC PANEL aspartate aminotransfe rase 24 U/L 15-46 Not Available [facility] (Lab) [address] [place], [address], 05/25/2023 16:08:51 05/25/19 24 05/25/2023 COMPR EHENS DWIGHT METAB OLIC PANEL bilirubin, total 2.00 mg/dL 0.20-1 .30 high Not Available [facility] (Lab) [address] [place], [address], 05/25/2023 16:08:51 05/25/19 24 05/25/2023 COMPR EHENS DWIGHT METAB OLIC PANEL calcium 10.4 mg/dL 8.4-10 .2 high Not Available [facility] (Lab) [address] [place], [address], 05/25/2023 16:08:51 05/25/19 24 05/25/2023 COMPR EHENS DWIGHT METAB OLIC PANEL total protein 7.3 g/dL 6.3-8. 2 Not Available [facility] (Lab) [address] [place], [address], 05/25/2023 16:08:51 05/25/19 24 05/25/2023 COMPR EHENS DWIGHT METAB OLIC PANEL albumin 4.4 g/dL 3.0-4. 4 Not Available [facility] (Lab) [address] [place], [address], 05/25/2023 16:08:51 05/25/19 24 05/25/2023 COMPR EHENS DWIGHT METAB OLIC PANEL globulin 2.9 g/dL 2.6-4. 2 Not Available [facility] (Lab) [address] [place], [address], 05/25/2023 16:08:51 05/25/19 24 05/25/2023 COMPR EHENS DWIGHT METAB OLIC PANEL A/G ratio 1.5 ratio 1.0-2. 0 Not Available [facility] (Lab) [address] [place], [address], 05/25/2023 16:08:51 05/25/19 24 05/25/2023 VITAM IN D 25-HY DROXY [id number] 72.3 NG/mL 30-100 Vitam in D Statu s: Defic ient: <20 ng/mL Insuf ficie nt: 20-29 ng/mL Suffi cient : 30-10 0 ng/mL Not Available [facility] (Lab) [address] [place], [address], 05/25/2023 16:23:52 05/25/19 24 05/25/2023 T4 FREE free T4 0.98 NG/dL 0.78-2 .19 Not Available [facility] (Lab) [address] [place], [address], 05/25/2023 16:24:42 05/25/19 24 05/25/2023 TSH thyroid-stim ulating hormone 1.180 uIU/m L 0.465- 4.680 Not Available [facility] (Lab) [address] [place], [address], 05/25/2023 16:37:54 08/08/20 24 09/28/2023 CBC/C OMPLE TE BLD COUNT W/DIF F white blood cells 4.7 x10'3 /uL 4.2-10 .8 Not Available [facility] (Lab) [address] [place], [address], 09/28/2023 13:27:53 09/28/19 24 09/28/2023 CBC/C OMPLE TE BLD COUNT W/DIF F red blood cells 4.62 x10'6 /uL 4.10-5 .80 Not Available [facility] (Lab) [address] [place], [address], 09/28/2023 13:27:53 09/28/19 24 09/28/2023 CBC/C OMPLE TE BLD COUNT W/DIF F hemoglobin 14.6 g/dL 13.2-1 7.0 Not Available [facility] (Lab) [address] [place], [address], 09/28/2023 13:27:53 09/28/19 24 09/28/2023 CBC/C OMPLE TE BLD COUNT W/DIF F hematocrit 43.6 % 39.3-5 0.0 Not Available [facility] (Lab) [address] [place], [address], 09/28/2023 13:27:53 09/28/19 24 09/28/2023 CBC/C OMPLE TE BLD COUNT W/DIF F mean red cell volume 94.4 fL 80.0-9 7.0 Not Available [facility] (Lab) [address] [place], [address], 09/28/2023 13:27:53 09/28/19 24 09/28/2023 CBC/C OMPLE TE BLD COUNT W/DIF F mean red cell hemoglobin 31.6 pg 27.0-3 3.0 Not Available [facility] (Lab) [address] [place], [address], 09/28/2023 13:27:53 09/28/19 24 09/28/2023 CBC/C OMPLE TE BLD COUNT W/DIF F mean RBC HGB concentratio n 33.5 g/dL 31.0-3 6.0 Not Available [facility] (Lab) [address] [place], [address], 09/28/2023 13:27:53 09/28/19 24 09/28/2023 CBC/C OMPLE TE BLD COUNT W/DIF F red cell distribution width 12.5 % 11.8-1 5.5 Not Available [facility] (Lab) [address] [place], [address], 09/28/2023 13:27:53 09/28/19 24 09/28/2023 CBC/C OMPLE TE BLD COUNT W/DIF F platelets 238 x10'3 /uL 150-40 0 Not Available [facility] (Lab) [address] [place], [address], 09/28/2023 13:27:53 09/28/19 24 09/28/2023 CBC/C OMPLE TE BLD COUNT W/DIF F mean platelet volume 9.4 fL 9.0-12 .4 Not Available [facility] (Lab) [address] [place], [address], 09/28/2023 13:27:53 09/28/19 24 09/28/2023 CBC/C OMPLE TE BLD COUNT W/DIF F neutrophils 54.0 % 39.0-7 2.0 Not Available [facility] (Lab) [address] [place], [address], 09/28/2023 13:27:53 09/28/19 24 09/28/2023 CBC/C OMPLE TE BLD COUNT W/DIF F lymphocytes 32.5 % 16.0-4 7.0 Not Available [facility] (Lab) [address] [place], [address], 09/28/2023 13:27:53 09/28/19 24 09/28/2023 CBC/C OMPLE TE BLD COUNT W/DIF F monocytes 10.8 % 5.0-12 .0 Not Available [facility] (Lab) [address] [place], [address], 09/28/2023 13:27:53 09/28/19 24 09/28/2023 CBC/C OMPLE TE BLD COUNT W/DIF F eosinophils 1.7 % 1.0-7. 0 Not Available [facility] (Lab) [address] [place], [address], 09/28/2023 13:27:53 09/28/19 24 09/28/2023 CBC/C OMPLE TE BLD COUNT W/DIF F basophils 0.8 % 0.0-2. 0 Not Available [facility] (Lab) [address] [place], [address], 09/28/2023 13:27:53 09/28/19 24 09/28/2023 CBC/C OMPLE TE BLD COUNT W/DIF F immature granulocytes 0.2 % 0.00-0 .50 Not Available [facility] (Lab) [address] [place], [address], 09/28/2023 13:27:53 09/28/19 24 09/28/2023 CBC/C OMPLE TE BLD COUNT W/DIF F neutrophils, absolute count 2.56 x10'3 /uL 1.5-8. 0 Not Available [facility] (Lab) [address] [place], [address], 09/28/2023 13:27:53 09/28/19 24 09/28/2023 CBC/C OMPLE TE BLD COUNT W/DIF F lymphocytes, absolute count 1.54 x10'3 /uL 1.07-3 .43 Not Available [facility] (Lab) [address] [place], [address], 09/28/2023 13:27:53 09/28/19 24 09/28/2023 CBC/C OMPLE TE BLD COUNT W/DIF F monocytes, absolute count 0.51 x10'3 /uL 0.29-0 .99 Not Available [facility] (Lab) [address] [place], [address], 09/28/2023 13:27:53 09/28/19 24 09/28/2023 CBC/C OMPLE TE BLD COUNT W/DIF F eosinophils, absolute count 0.08 x10'3 /uL 0.02-0 .53 Not Available [facility] (Lab) [address] [place], [address], 09/28/2023 13:27:53 09/28/19 24 09/28/2023 CBC/C OMPLE TE BLD COUNT W/DIF F basophils, absolute count 0.04 x10'3 /uL 0.01-0 .08 Not Available [facility] (Lab) [address] [place], [address], 09/28/2023 13:27:53 09/28/19 24 09/28/2023 CBC/C OMPLE TE BLD COUNT W/DIF F immature granulocytes ,absolute 0.01 x10'3 /uL 0.00-0 .05 Not Available [facility] (Lab) [address] [place], [address], 09/28/2023 13:27:53 09/28/19 24 09/28/2023 CBC/C OMPLE TE BLD COUNT W/DIF F nucleated red blood cells 0.0 % -0 Not Available [facility] (Lab) [address] [place], [address], 09/28/2023 13:27:53 09/28/19 24 09/28/2023 CBC/C OMPLE TE BLD COUNT W/DIF F NRBC# 0.00 x10'3 /uL Not Available [facility] (Lab) [address] [place], [address], 09/28/2023 13:27:53 09/28/19 24 09/28/2023 LIPID PANEL cholesterol 168 mg/dL 140-19 9 NIH BRIGITTE NSUS RECOM MENDA TION FOR ANTHONY STERO L: ADULT CHILD LOW RISK: <200 <170 BORDE RLINE : <200- 239 ----- HIGH RISK: >240 >200 Not Available [facility] (Lab) [address] [place], [address], 09/28/2023 13:31:47 09/28/19 24 09/28/2023 LIPID PANEL triglyceride s 89 mg/dL 0-150 NIH BRIGITTE NSUS REPOR T RECOM MENDA TION FOR TRIGL YCERI TERRENCE: ADULT CHILD LOW RISK: <150 ----- BODER LINE: 150-1 99 ----- HIGH RISK: >200 ----- Not Available [facility] (Lab) [address] [place], [address], 09/28/2023 13:31:47 09/28/19 24 09/28/2023 LIPID PANEL HDL cholesterol 68 mg/dL 40- Not Available [facility] (Lab) [address] [place], [address], 09/28/2023 13:31:47 09/28/19 24 09/28/2023 LIPID PANEL LDL cholesterol, calculated 82 mg/dL 0-130 NIH BRIGITTE NSUS REPOR T RECOM MENDA TIONS FOR LDL: ADULT CHILD LOW RISK <130 <110 (OPTI MAL LDL) <100 ----- BORDE RLINE : 130-1 59 ----- HIGH RISK: >160 >130 A TRIGL YCERI DE RESUL T >400 INVAL IDATE S THE CALCU LATIO N FOR LDL FRACT IONAT ION - THE LDL RESUL T WILL NOT BE REPOR YARELIS. Not Available [facility] (Lab) [address] [place], [address], 09/28/2023 13:31:47 09/28/19 24 09/28/2023 COMPR EHENS DWIGHT METAB OLIC PANEL sodium 140 mmol/ L 137-14 5 Not Available [facility] (Lab) [address] [place], [address], 09/28/2023 13:31:53 09/28/19 24 09/28/2023 COMPR EHENS DWIGHT METAB OLIC PANEL potassium 3.6 mmol/ L 3.5-5. 1 Not Available [facility] (Lab) [address] [place], [address], 09/28/2023 13:31:53 09/28/19 24 09/28/2023 COMPR EHENS DWIGHT METAB OLIC PANEL chloride 108 mmol/ L 98-107 high Not Available [facility] (Lab) [address] [place], [address], 09/28/2023 13:31:53 09/28/19 24 09/28/2023 COMPR EHENS DWIGHT METAB OLIC PANEL carbon dioxide 28 mmol/ L 22-30 Not Available [facility] (Lab) [address] [place], [address], 09/28/2023 13:31:53 09/28/19 24 09/28/2023 COMPR EHENS DWIGHT METAB OLIC PANEL anion gap 7.6 mmol/ L 14-22 low Not Available [facility] (Lab) [address] [place], [address], 09/28/2023 13:31:53 09/28/19 24 09/28/2023 COMPR EHENS DWIGHT METAB OLIC PANEL glucose 83 mg/dL 70-99 Not Available [facility] (Lab) [address] [place], [address], 09/28/2023 13:31:53 09/28/19 24 09/28/2023 COMPR EHENS DWIGHT METAB OLIC PANEL BUN 19 mg/dL 8-19 Not Available [facility] (Lab) [address] [place], [address], 09/28/2023 13:31:53 09/28/19 24 09/28/2023 COMPR EHENS DWIGHT METAB OLIC PANEL creatinine 1.37 mg/dL 0.66-1 .25 high Not Available [facility] (Lab) [address] [place], [address], 09/28/2023 13:31:53 09/28/19 24 09/28/2023 COMPR EHENS DWIGHT METAB OLIC PANEL GFR 60 Refer ence Range : [place] ge GFR Healt hy Adult : >60 mL/mi n/1.7 3 m2 Chron ic Kidne y Disea se: 15-60 mL/mi n/1.7 3 m2 Kidne y Failu re: <15/m L/min /1.73 m2 www.n iddk. nih.g ov The MDRD study equat ion has not been valid ated in child macy <18 years of age; pregn ant women ; the elder ly >85 years of age; or in some racia l or ethni c subgr oups, such as or nics. Outsi de the valid ated marquise eters , estim ated GFR is less accur ate, requi ring clini alfredo judgm ent on a case- by-ca se basis . Clini alfredo inter preta tion for other races and ages must be made by the clini yane. The MDRD study equat ion has not been valid ated for the evalu ation of serum creat inine relat ed to nutri gretel l statu s or medic ation usage . For perso ns <18 years of age, a pedia tric GFR calcu lator is avail able on the NKF websi te: https ://suzanna benoit.yenny marcus.o brie/pr ofess ional s/kdo qi/gf r_cal culat or Not Available [facility] (Lab) [address] [place], [address], 09/28/2023 13:31:53 09/28/19 24 09/28/2023 COMPR EHENS DWIGHT METAB OLIC PANEL alkaline phosphatase 299 U/L 38-126 high Not Available [facility] (Lab) [address] [place], [address], 09/28/2023 13:31:53 09/28/19 24 09/28/2023 COMPR EHENS DWIGHT METAB OLIC PANEL alanine aminotransfe rase 22 U/L 0-50 Not Available [facility] (Lab) [address] [place], [address], 09/28/2023 13:31:53 09/28/19 24 09/28/2023 COMPR EHENS DWIGHT METAB OLIC PANEL aspartate aminotransfe rase 24 U/L 15-46 Not Available [facility] (Lab) [address] [place], [address], 09/28/2023 13:31:53 09/28/19 24 09/28/2023 COMPR EHENS DWIGHT METAB OLIC PANEL bilirubin, total 1.80 mg/dL 0.20-1 .30 high Not Available [facility] (Lab) [address] [place], [address], 09/28/2023 13:31:53 09/28/19 24 09/28/2023 COMPR EHENS DWIGHT METAB OLIC PANEL calcium 9.8 mg/dL 8.4-10 .2 Not Available [facility] (Lab) [address] [place], [address], 09/28/2023 13:31:53 09/28/19 24 09/28/2023 COMPR EHENS DWIGHT METAB OLIC PANEL total protein 7.0 g/dL 6.3-8. 2 Not Available [facility] (Lab) [address] [place], [address], 09/28/2023 13:31:53 09/28/19 24 09/28/2023 COMPR EHENS DWIGHT METAB OLIC PANEL albumin 4.3 g/dL 3.0-4. 4 Not Available [facility] (Lab) [address] [place], [address], 09/28/2023 13:31:53 09/28/19 24 09/28/2023 COMPR EHENS DWIGHT METAB OLIC PANEL globulin 2.7 g/dL 2.6-4. 2 Not Available [facility] (Lab) [address] [place], [address], 09/28/2023 13:31:53 09/28/19 24 09/28/2023 COMPR EHENS DWIGHT METAB OLIC PANEL A/G ratio 1.6 ratio 1.0-2. 0 Not Available [facility] (Lab) [address] [place], [address], 09/28/2023 13:31:53 09/28/19 24 09/28/2023 T4 FREE free T4 1.21 NG/dL 0.78-2 .19 Not Available [facility] (Lab) [address] [place], [address], 09/28/2023 13:39:57 09/28/19 24 09/28/2023 VITAM IN D 25-HY DROXY vd25oh 77.4 NG/mL 30-100 Vitam in D Statu s: Defic ient: <20 ng/mL Insuf ficie nt: 20-29 ng/mL Suffi cient : 30-10 0 ng/mL Not Available [facility] (Lab) [address] [place], [address], 09/28/2023 13:43:09 09/28/19 24 09/28/2023 TSH thyroid-stim ulating hormone 1.450 uIU/m L 0.465- 4.680 Not Available [facility] (Lab) [address] [place], [address], 09/28/2023 14:00:59 12/13/19 24 12/13/2023 US, abdom en, limit ed [place] [facility] [address] [place] [address] Patien t Name: BRAD FARRELL Access ion #: [id number] Sex: M : 1935 0 Dictat ed By: Chapincito Dominguez ms Attend ing Physic ihsan: JEANIE ZAFAR Orderi ng Physic ihsan: JEANIE ZAFAR Exam Date: 2023 09:12 AM Exam Name: US ABDOME N SINGLE ORGAN Admitt ing Diagno sis(es ): INDICA TION: Hyperb ilirub inemia . TECHNI QUE: Multip le real-t bonnie sonogr aphic images of the abdome n were obtain ed. COMPAR BRIELLE: US ABDOME N SINGLE ORGAN on DOS: FINDIN GS: The liver is homoge nous in echoge nicity . The liver measur es 12.4 cm. No intrah epatic biliar y ductal dilata tion is noted. Hepato petal flow in the main portal vein. The gallbl adder wall measur es 0.3 cm and is unrema rkable . Sludge noted. No defini te stones . The common duct measur es 0.4 cm and is unrema rkable . No perich olecys tic fluid is noted. Negati ve sonogr aphic oropeza 's sign. The right kidney measur es 9.5 cm. There is a cyst in the latera lly measur ing 4.0 x 3.4 x 3.8 cm. No hydron ephros is. The pancre as is not well visual ized due to obscur ation from bowel gas. The visual ized portio ns of the IVC and aorta are grossl y unrema rkable . IMPRES MARKO: 1. Gallbl adder sludge . No acute abnorm ality. 2. Right renal cyst. Electr onical ly Signed by: Chapincito Dominguez ms at 2023 11:57: 01 AM Page 1 INTERFACE [place] [facility] (Imaging) [address] [place], [address], 12/13/2023 12:59:32 12/13/19 24 12/13/2023 US, abdom en, compl ete No observ ation record ed. [facility] [address] [place], [address], 12/13/2023 13:06:50 Result Notes None recorded. Problems Name Problem SNOMED Code Status Onset Date Resolution Date Notes Provider Name and Address Organization Details Recorded Time Essential hypertension 03611903 Active 2021 Not Available [facility] 4 07:10:17 Leukocytosis 135394725 Active 2021 Not Available [facility] 4 07:10:16 Liver enzymes level above reference range 278170535 Active 2021 Not [address] [facility] 4 07:10:17 Hyperlipidemi a 96156837 Active 2022 Not Available [facility] 4 07:10:17 Alkaline phosphatase above reference range 812631471 Active 2022 Not Available [facility] 4 07:10:17 Chronic kidney disease 954916919 Active 2022 Not Available [facility] 4 07:10:17 Hyperbilirubi nemia 69921225 Active 2022 Not Available [facility] 4 07:10:17 Vitamin D deficiency 55929768 Active 2022 Not Available [facility] 4 07:10:17 Serum vitamin B12 below reference range 628174415 Active 2022 Not Available [facility] 4 07:10:17 Leukopenia 31298827 Active 2022 Not Available [facility] 4 07:10:17 Glaucoma 80848332 Active 2023 Misael sinclair MD [address] [facility], [address], [place], [address] , [place] [employer] [facility] 4 11:23:24 Hypernatremia 101512450 Active 2024 Misael sinclair MD [address] [facility], [place], [address] , [facility] [employer] 5 11:24:06 Problem Notes None recorded. Procedures Surgical History Date Name Laterality Status Provider Name and Address Organization Details Recorded Time Medicare Wellness CPT Code, Initial completed Eboni Burdick RN [facility] [employer] 12/01/2022 11:34:57 Cyst Removal completed Not Available [employer] [facility] 04/21/2022 01:25:17 Imaging Results None recorded. Procedure Notes None recorded. Medical Equipment None Reported. Allergies No known drug allergies Medications Name Sig Start Date Stop Date Status Note LastModified by Organization Details LastModified Time latanopro st 0.005 % eye drops INSTILL ONE DROP INTO BOTH EYES EVERY NIGHT active Not Available Not Available No t Available atorvasta tin 10 mg tablet TAKE 1 TABLET BY MOUTH ONCE DAILY 2024 active Not Available Not Available Not Avai lable cyanocoba taylor (vit B-12) 1,000 mcg tablet TAKE 1 TABLET BY MOUTH EVERY DAY active Not Available Not Available No t Available amlodipin e 10 mg tablet TAKE 1 TABLET BY MOUTH ONCE DAILY 2024 active Not Available Not Available Not Avai lable dorzolami de 22.3 mg-timolo l 6.8 mg/mL eye drops INSTILL ONE DROP INTO BOTH EYES TWICE DAILY active Not Available Not Available No t Available cyanocoba taylor (vit B-12) 1,000 mcg sublingua l tablet TAKE 1 TABLET BY MOUTH DAILY 12/01 completed duplicat e Rx Not Available Not Available Not Available ergocalci ferol (vitamin D2) 1,250 mcg (50,000 unit) capsule TAKE 1 CAPSULE BY MOUTH ONCE A MONTH active Not Available Not Available No t Available lisinopri l 40 mg tablet Take 1 tablet every day by oral route for 90 days. 10/14 completed Not Available Not Available Not Available calcitrio l 0.25 mcg capsule TAKE 1 CAPSULE BY MOUTH EVERY OTHER DAY active Not Available Not Available No t Available valsartan 320 mg-hydroc hlorothia zide 25 mg tablet TAKE 1 TABLET BY MOUTH ONCE DAILY 2024 active Not Available Not Available Not Avai lable Vitals Date Recorded Body height Body mass index (BMI) Body weight Body temperature Heart rate Systolic And Diastolic Provider Name and Address Organization Details Last Updated DateTime 5 180.34 cm 28.7 kg/m2 63567.0 3 g 97.6 [degF] 54 /min 132/62 mm[Hg] EMELY Smalls [facility] [employer] [facility] 5 11:21:21 Date Recorded Body height Body mass index (BMI) Body weight Body temperature Heart rate Systolic And Diastolic Provider Name and Address Organization Details Last Updated DateTime 4 180.34 cm 35.8 kg/m2 918990. 24 g 97.7 [degF] 66 /min 120/60 mm[Hg] Griselda Diaz Ryan [facility] [employer] [facility] 4 11:53:07 Date Recorded Body height Body mass index (BMI) Body weight Body temperature Heart rate Oxygen saturation Oxygen saturation in Arterial blood by Pulse oximetry Pain severity - 0-10 verbal numeric rating [Score] - Reported Systolic And Diastolic Provider Name and Address Organization Details Last Updated DateTime 5 180.34 cm 29.4 kg/m2 81838.9 9 g 97.6 [degF] 49 /min 94 % 94 % 0 132/72 mm[Hg] Rossi Pearson MA [facility] [employer] [facility] 5 11:26:34 Date Recorded Body height Body mass index (BMI) Body weight Body temperature Heart rate Systolic And Diastolic Provider Name and Address Organization Details Last Updated DateTime 4 180.34 cm 28.3 kg/m2 73660.2 5 g 97.3 [degF] 60 /min 100/62 mm[Hg] Griselda Diaz Ryan [facility] [employer] [facility] 4 11:17:55 Date Recorded Body height Body mass index (BMI) Body weight Body temperature Oxygen saturation Oxygen saturation in Arterial blood by Pulse oximetry Heart rate Pain severity - 0-10 verbal numeric rating [Score] - Reported Systolic And Diastolic Provider Name and Address Organization Details Last Updated DateTime 5 180.34 cm 28.7 kg/m2 38053.2 3 g 97.1 [degF] 97 % 97 % 59 /min 0 128/72 mm[Hg] Rossi Pearson [place] [facility] [place] [employer] 5 11:37:47 Social History Question Answer Notes LastModified by Organization Details LastModified Time Tobacco Smoking Status Former Smoker quit over 50 years ago Not Available [employer] 04/21/2022 01:24:58 Do You Have An Advance Directive? Yes [email or web address] Information not available 12/01/2022 Are You Blind Or Do You Have Difficulty Seeing? No MIGRATION.030 199399 Information not available 04/21/2022 What Is Your Level Of Caffeine Consumption? Moderate MIGRATION.030 020479 Information not available 04/21/2022 In The 14 Days Before Symptom Onset, Have You Had Close Contact With A Laboratory-confi rmed COVID-19 While That Case Was Ill? No MIGRATION.030 [id number] Information not available 04/21/2022 In The 14 Days Before Symptom Onset, Have You Had Close Contact With A Person Who Is Under Investigation For COVID-19 While That Person Was Ill? No MIGRATION.030 237837 Information not available 04/21/2022 Are You Deaf Or Do You Have Serious Difficulty Hearing? No MIGRATION.030 323021 Information not available 04/21/2022 What Type Of Diet Are You Following? REGULAR MIGRATION.030 246640 Information not available 04/21/2022 What Is The Highest Grade Or Level Of School You Have Completed Or The Highest Degree You Have Received? XL38647-0 MIGRATION.300 643225 Information not available 04/21/2022 Have There Been Any Changes To Your Family Or Social Situation? No MIGRATION.030 142546 Information not available 04/21/2022 What Is The Fluoride Status Of Your Home? Unknown MIGRATION.030 981891 Information not available 04/21/2022 When Did You Quit Smoking? 18+yearssinjanis jackson MIGRATION.300 219172 Information not available 04/21/2022 Are There Any Guns Present In Your Home? No MIGRATION.030 438708 Information not available 04/21/2022 Do You Use Insect Repellent Routinely? No MIGRATION.030 546036 Information not available 04/21/2022 [facility] MIGRATION.0301 514370 Information not available 04/21/2022 Guns Present In The Home? No [email or web address] Information not available 12/01/2022 Are You Able To Care For Yourself? Yes [email or web address] Information not available 12/01/2022 Are You Blind Or Do Yo Have Difficulty Seeing? No [email or web address] Information not available 12/01/2022 Are You Deaf Or Do You Have Serious Difficulty Hearing? No [email or web address] Information not available 12/01/2022 Live Alone Of With Others? Alone [email or web address] Information not available 12/01/2022 Are You Following A Low Salt Diet? Yes MIGRATION.0301 [id number] Information not available 04/21/2022 Do You Have A Medical Power Of [employer] Operator? Yes [email or web address] Information not available 12/01/2022 What Was The Date Of Your Most Recent Tobacco Screening? 11/07/2024 [email or web address] Information not available 11/07/2024 Do You Have Any Pets? No MIGRATION.0301 538188 Information not available 04/21/2022 What Is Your Relationship Status? MIGRATION.0301 939167 Information not available 04/21/2022 Do You Use Your Seat Belt Or Car Seat Routinely? Yes MIGRATION.0301 [id number] Information not available 04/21/2022 Do You Have Smoke And Carbon Monoxide Detectors In Your Home? Yes MIGRATION.0301 070564 Information not available 04/21/2022 Are You Passively Exposed To Smoke? No MIGRATION.0301 [id number] Information not available 04/21/2022 Are There Any Smokers In Your House? No MIGRATION.0301 670290 Information not available 04/21/2022 Do You Use Sunscreen Routinely? No MIGRATION.0301 964723 Information not available 04/21/2022 Has Tobacco Cessation Counseling Been Provided? No MIGRATION.0301 356971 Information not available 04/21/2022 Have You Recently Traveled Abroad? No MIGRATION.0301 846191 Information not available 04/21/2022 Do You Have Difficulty Walking Or Climbing Stairs? No MIGRATION.0301 270279 Information not available 04/21/2022 Do You Have Any Dietary Restrictions? Yes MIGRATION.0301 424449 Information not available 04/21/2022 Sex: Male Functional Status Question Answer Note LastModified by Organizat ion Details LastModified Time Do you use any illicit or recreational drugs? No MIGRATION.096750 5626 Information not available 04/21/2022 Do you or have you ever used any other forms of tobacco or nicotine? No MIGRATION.803426 8021 Information not available 04/21/2022 What is your level of alcohol consumption? None MIGRATION.778753 9234 Information not available 04/21/2022 Are you currently employed? No [email or web address] Information not available 12/01/2022 Do you have transportation difficulties? No MIGRATION.491044 4930 Information not available 04/21/2022 Are you able to walk independently without assistance or assistive devices? YESWOREST MIGRATION.658850 8855 Information not available 04/21/2022 Do you have difficulty doing errands alone? No MIGRATION.592396 0409 Information not available 04/21/2022 Are you able to care for yourself independently? Yes MIGRATION.765783 7901 Information not available 04/21/2022 Do you have difficulty dressing, bathing, grooming, or toileting? No MIGRATION.843254 7089 Information not available 04/21/2022 What is your exercise level? Occasional stays active MIGRATION.634548 8743 Information not available 04/21/2022 Mental Status Question Answer Note LastModified by Organizat ion Details LastModified Time Do you feel stressed (tense, restless, nervous, or anxious, or unable to sleep at night)? DA5599-3 MIGRATION.26229749 26 Information not available 04/21/2022 Do you have difficulty concentrating, remembering or making decisions? No MIGRATION.66267234 26 Information not available 04/21/2022 Family History Relationship Description Onset Age of this Age Resolved Age Notes LastModified by Organization Details LastModified Time Mother Hypertensive disorder MIGRATION.823 [id number] Not available 04/21/2022 01:25:22 Brother Hypertensive disorder x2 MIGRATION.057 [id number] Not available 04/21/2022 01:25:22 Brother Stented artery MIGRATION.163 [id number] Not available 04/21/2022 01:25:22 Medical History Condition Response NERVE DISEASE N BLINDNESS N RHEUMATIC FEVER N KIDNEY STONES N BLADDER PROBLEMS N MRSA N OTHER # 1 N POLIO N LUNG DISEASE/DISORDER N HISTORY OF DRUG ABUSE N RADIATION / CHEMOTHERAPY N COPD N Other # 2 N BLOOD DISEASES N EAR OR HEARING PROBLEMS N MUMPS N SHINGLES N BOWEL PROBLEMS N DEPRESSION (INCLUDING POST ) N STROKE/TIA N ULCERS N BENIGN PROSTATIC HYPERPLASIA N MEASLES N HYPOTENSION N MYOCARDIAL INFARCTION N OBESITY N GERD/NAUSEA N ANEURYSM N URINARY/BLADDER/KIDNEY PROBLEMS N CORONARY ARTERY DISEASE (CAD) N ADDICTION CONCERNS N ENDOMETRIOSIS N Impotence N USE OF BLOOD THINNERS N SKIN PROBLEMS N GASTROINTESTINAL DISORDER N PERIPHERAL VASCULAR DISEASE N MUSCLE,JOINT OR BONE PROBLEMS N GASTROINTESTINAL BLEEDING N BLOOD CLOTS N ASTHMA N CATARACTS N ERECTILE DYSFUNCTION N VARICOSITIES N GI PROBLEMS N Low Testosterone N INFERTILITY N AIDS/HIV N CHEMOTHERAPY / RADIATION N LIVER DISEASE N MALE HYPOGONADISM N HYPERTENSION Y Deficiency Y TOURETTE'S N ANXIETY DISORDER N BLOOD TRANSFUSION N ANEMIA/BLOOD DISORDER N CHRONIC EAR INFECTIONS N BRONCHITIS N TUBERCULOSIS N GLAUCOMA N FOOT PROBLEM N DIVERTICULITIS N CHICKENPOX N SLEEP APNEA N INFECTIOUS DISEASE N HEART ARRHYTHMIA N PROSTATE N INSOMNIA N HIGH CHOLESTEROL / HYPERLIPIDEMIA Y HYPERTHYROIDISM N EYE PROBLEMS N EDEMA N CHRONIC PAIN SYNDROME N HYPOTHYROIDISM N CAROTID BLOCKAGE N CONSTIPATION N BACK / NECK PROBLEMS N ATHEROSCLEROSIS N BREAST PROBLEMS N DIALYSIS N ECZEMA N OSTEOPOROSIS N ARTHRITIS N APPENDICITIS N DIABETES, TYPE N BAD TEETH N ENT N HEARTBURN / REFLUX N AUTISM SPECTRUM DISORDER (ASD) N HEPATITIS / LIVER DISEASE N GOUT N SLEEP DISORDER N ALZHEIMER'S DISEASE N Brain Problems N HERPES N DEMENTIA N HEADACHES/MIGRAINES N SEIZURES/EPILEPSY N VASCULAR DISEASE N PACEMAKER N Blood Disorder N DIZZINESS N HEART DISEASE/HEART PROBLEMS N KIDNEY DISEASE N MULTIPLE SCLEROSIS N CARDIAC ARRHYTHMIA N CANCER: SPECIFY N ATRIAL FIBRILLATION N Gall Stones N PULMONARY EMBOLISM N AUTOIMMUNE DISEASE N Immunizations Vaccine Type Date Status Note Provider Nam e and Address Organization Details Recorded Time Influenza, high-dose, quadrivalent, PF 01/06/2022 completed Not Available [employer] 07:10:17 Influenza, high-dose, quadrivalent, PF 12/01/2022 completed Misael Hopper MD [address] [place] [address], [address], [address], [facility] [employer] 12/01/2022 16:03:28 Past Encounters Encounter ID Performer Location Encounter Start Date Encounter Closed Date Diagnosis/Indication Diagnosis SNOMED-CT Code Diagnosis ICD10 Code Diagnosis IMO Codes Diagnosis Note [id number] Misael sinclair MD [facility] [place] [address] [address] 10/14/2021 00:00:00 10/14/2021 10:38:44 [id number] Misael sinclair MD [facility] [place] [address] [address] 01/06/2022 00:00:00 01/06/2022 13:57:49 [id number] Misael sinclair MD [facility] Internal [facility] [place] [address] [address] 05/05/2022 11:24:26 05/05/2022 12:00:12 Screening - NAD 519800330 Z13.9 C-scope: Get the report if done, he cannot recall if he has had this, but is adamant does not want another and denies any complaints Get flu shot/Tdap if not doneCan do PCV #13 and #23 or #20 if not doneCan do shingrix vaccineDo COVID 19 vaccine and its boosters 10/14/2021 : He did provide the telephone # for his daughter Ana and gave permission to discuss his care with her RTC in 3 months, do labs, ER if worse, he and daughter Ana did verbalize his understand ing of the above Hyperlipidemia 61759595 E78.5 On atorvastat in 10mg daily Get labs Alkaline p hosphatase above reference range 026207296 R74.8 US liver 12/16/2021 Get a referral to Dr Alberto HARRIS, may need to see Dr Edwards too oncology Essential hypertension 49971352 I10 On amlodipine 10mg dailyOn lisinopril 40mg daily, d/c this as already on ARBOn valsartan- HCTZ 320-25mg daily Get labs Chronic ki dney disease 913482821 N18.[address] Alberto HARRIS, especially if the ALP is elevated also Hyperbilirubinemia 07648 006 E80.6 US liver: 12/16/2022 No complaints Vitamin D deficiency 347 87960 E55.9 Serum qian min B12 below reference range 304298650 R79.89 On b12, get labs [id number] Misael sinclair MD [facility] [facility] [address] [facility], [address] [address] 08/04/2022 11:09:21 08/04/2022 12:11:20 Screening - NAD [id number] Z13.9 C-scope: Get the report if done, he cannot recall if he has had this, but is adamant does not want another and denies any complaints Get flu shot/Tdap if not doneCan do PCV #13 and #23 or #20 if not doneCan do shingrix vaccineDo COVID 19 vaccine and its boosters 10/14/2021 : He did provide the telephone # for his daughter Ana and gave permission to discuss his care with her RTC in 3 months, do labs, ER if worse, he and daughter Ana did verbalize his understand ing of the above Hyperlipidemia 99242591 E78.5 On atorvastat in 10mg daily Get labs Alkaline p hosphatase above reference range 266504900 R74.8 US liver 12/16/2021 Dr Alberto HARRISAlso get a referral to Dr Smith Essential hypertension [id number] I10 On amlodipine 10mg dailyOn lisinopril 40mg daily, d/c this as already on ARBOn valsartan- HCTZ 320-25mg daily Get labs Chronic ki dney disease 729270752 N18.9 On calcitriol On vit D weeklySees Dr Dominguez IJ Hyperbilirubinemia 87216 006 E80.6 US liver: 12/16/2022 No complaints Vitamin D deficiency 347 60281 E55.9 Serum qian min B12 below reference range 022384102 R79.89 On b12, get labs [id number] Misael sinclair MD [facility] [address] [facility], [address] [address] 12/01/2022 11:07:34 12/01/2022 11:52:04 Screening - NAD [id number] Z13.9 C-scope: Get the report if done, he cannot recall if he has had this, but is adamant does not want another and denies any complaints Get flu shot/Tdap if not doneCan do PCV #13 and #23 or #20 if not doneCan do shingrix vaccineDo COVID 19 vaccine and its boostersCa n do RSV vaccie 10/14/2021 : He did provide the telephone # for his daughter Ana and gave permission to discuss his care with her RTC in 3 months, do labs, ER if worse, he and daughter Ana did verbalize his understand ing of the above Hyperlipidemia 79150171 E78.5 On atorvastat in 10mg dailyGet labs Alkaline p hosphatase above reference range 415981555 R74.8 US liver 12/16/2021 Dr Dominguez IJAlso get a referral to Dr Smith Essential hypertension 27759915 I10 On amlodipine 10mg dailyOn lisinopril 40mg daily, d/c this as already on ARBOn valsartan- HCTZ 320-25mg daily Get labs Chronic ki dney disease 682431967 N18.9 On calcitriol On vit D weeklySees Dr Dominguez IJ Hyperbilirubinemia 23057 006 E80.6 US liver: 12/16/2022 No complaints Vitamin D deficiency 347 10163 E55.9 Serum qian min B12 below reference range 678578746 R79.89 On b12, get labsNo need for B12 now Leukopenia 19274207 D72. 819 Mild, stable, he does not want any more referrals for this 12/01/2022 , states that he is 87 years and would not want any more testing or referrals at this time Adult [facility] th examination 276229284 Z00.00 Screening for disorder 805111508 Z13.9 Administra tion of influenza vaccine 23717468 Z23 [id number] MD BEKA LeonardS[facility] [address] [facility], [address] [place] [address] 06/01/2023 11:11:56 06/01/2023 12:36:09 Screening - NAD 279020628 Z13.9 C-scope: Get the report if done, he cannot recall if he has had this, but is adamant does not want another and denies any complaints Get flu shot/Tdap if not doneCan do PCV #13 and #23 or #20 if not doneCan do shingrix vaccineDo COVID 19 vaccine and its boostersCa n do RSV vaccie 10/14/2021 : He did provide the telephone # for his daughter Ana and gave permission to discuss his care with her RTC in 3 months, do labs, ER if worse, he and daughter Ana did verbalize his understand ing of the above Hyperlipidemia 60592078 E78.5 On atorvastat in 10mg dailyGet labs Alkaline p hosphatase above reference range 625404401 R74.8 US liver 12/16/2021 Dr Dominguez IJAlso get a referral to Dr Alfaro Essential hypertension 88659844 I10 On amlodipine 10mg dailyOn lisinopril 40mg daily, d/c this as already on ARBOn valsartan- HCTZ 320-25mg daily Get labs Chronic ki dney disease 072881809 N18.9 On calcitriol On vit D weeklySees Dr Dominguez IJ Hyperbilirubinemia 85055 006 E80.6 US liver: 12/16/2022 No complaints Vitamin D deficiency 347 10289 E55.9 Serum qian min B12 below reference range 319938563 R79.89 On b12, get labsNo need for B12 now 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, stable, he does not want any more referrals for this 12/01/2022 , states that he is 87 years and would not want any more testing or referrals at this time [id number] Misael sinclair MD S[facility] [address] [facility], [address] [place] [address] 10/05/2023 11:07:31 10/05/2023 11:41:42 Screening - NAD 242383231 Z13.9 C-scope: Get the report if done, he cannot recall if he has had this, but is adamant does not want another and denies any complaints Get flu shot/Tdap if not doneCan do PCV #13 and #23 or #20 if not doneCan do shingrix vaccineDo COVID 19 vaccine and its boostersCa n do RSV vaccine 10/14/2021 : He did provide the telephone # for his daughter Ana and gave permission to discuss his care with her RTC in 3 months, do labs, ER if worse, he and daughter Ana did verbalize his understand ing of the above Hyperlipidemia 03384771 E78.5 On atorvastat in 10mg dailyGet labs Alkaline p hosphatase above reference range 201473537 R74.8 US liver 12/16/2021 Dr Alberto HARRISAlso get a referral to Dr Alfaro Essential hypertension [id number] I10 On amlodipine 10mg dailyOn lisinopril 40mg daily, d/c this as already on ARBOn valsartan- HCTZ 320-25mg daily Get labs Chronic ki dney disease 755914968 N18.9 On calcitriol On vit D weeklySees Dr Dominguez IJ Hyperbilirubinemia 42032 006 E80.6 US liver: 12/16/2022 No complaints Will get US abd Vitamin D deficiency 347 87399 E55.9 Serum qian min B12 below reference range 452907356 R79.89 On b12, get labsNo need for B12 now Leukopenia 15976165 D72. 819 Mild, stable, he does not want any more referrals for this 12/01/2022 , states that he is 87 years and would not want any more testing or referrals at this time Glaucoma 12740943 H40.9 On dorzolamid Barb latanopros Alis eye [id number] Misael sinclair MD [facility] [address] [facility], [address] [place] [address] 04/04/2024 11:09:42 04/04/2024 12:21:40 Screening - NAD 964076623 Z13.9 C-scope: Get the report if done, he cannot recall if he has had this, but is adamant does not want another and denies any complaints Get flu shot/Tdap if not doneCan do PCV #13 and #23 or #20 if not doneCan do shingrix vaccineDo COVID 19 vaccine and its boostersCa n do RSV vaccine 10/14/2021 : He did provide the telephone # for his daughter Ana and gave permission to discuss his care with her RTC in 3 months, do labs, ER if worse, he and daughter Ana did verbalize his understand ing of the above Hyperlipidemia 43259947 E78.5 On atorvastat in 10mg dailyGet labs Alkaline p hosphatase above reference range 357533744 R74.8 US liver 12/16/2021 Dr Alberto HARRISAlso get a referral to Dr Alfaro Essential hypertension 01135456 I10 On amlodipine 10mg dailyOn lisinopril 40mg daily, d/c this as already on ARBOn valsartan- HCTZ 320-25mg daily Get labs Chronic ki dney disease 599498962 N18.9 On calcitriol On vit D weeklySees Dr Alberto HARRIS Hyperbilirubinemia 85027 006 E80.6 US liver: 12/16/2022 US liver: 12/13/2023 Vitamin D deficiency 347 57587 E55.9 Serum qian min B12 below reference range 991683894 R79.89 Get labsNo need for B12 now Leukopenia 31569360 D72. 819 Mild, stable, he does not want any more referrals for this 12/01/2022 , 04/04/2024 , states that he is 87 years and would not want any more testing or referrals at this time Glaucoma 90179335 H40.9 On dorzolamid Barb latanopros Alis eye Hypernatremia 795203148 E87.0 Needs to see nephrology , he will see Dr Alberto HARRIS tomorrow 04/05/2024 [id number] Misael sinclair MD [facility] [address] [facility], [address] [address] 07/04/2024 11:09:14 07/04/2024 12:17:16 Screening - NAD 378022806 Z13.9 C-scope: Get the report if done, he cannot recall if he has had this, but is adamant does not want another and denies any complaints Get flu shot/Tdap if not doneCan do PCV #13 and #23 or #20 if not doneCan do shingrix vaccineDo COVID 19 vaccine and its boostersCa n do RSV vaccine 10/14/2021 : He did provide the telephone # for his daughter Ana and gave permission to discuss his care with her RTC in 3 months, do labs, ER if worse, he and daughter Ana did verbalize his understand ing of the above Hyperlipidemia 53889234 E78.5 On atorvastat in 10mg dailyGet labs Alkaline p hosphatase above reference range 250165242 R74.8 US liver 12/16/2021 Dr Alberto Licona referred to Dr Alfaro Essential hypertension 86226150 I10 On amlodipine 10mg dailyOn lisinopril 40mg daily, d/c this as already on ARBOn valsartan- HCTZ 320-25mg daily Get labs Chronic ki dney disease 009816861 N18.9 On calcitriol On vit D weeklySees Dr Alberto HARRIS Hyperbilirubinemia 41070 006 E80.6 US liver: 12/16/2022 US liver: 12/13/2023 Vitamin D deficiency 347 26731 E55.9 Serum qian min B12 below reference range 089383662 R79.89 Get labsNo need for B12 now Leukopenia 40521299 D72. 819 Mild, stable, he does not want any more referrals for this 12/01/2022 , 04/04/2024 , 07/04/2024 Glaucoma 95950896 H40.9 On dorzolamid Barb latanopros Alis eye [id number] Misael sinclair MD [facility] [address] [facility], [address] [place] [address] 11/07/2024 11:28:53 11/07/2024 12:14:18 Screening - NAD 557495979 Z13.9 C-scope: Get the report if done, he cannot recall if he has had this, but is adamant does not want another and denies any complaints Get flu shot/Tdap if not doneCan do PCV #13 and #23 or #20 if not doneCan do shingrix vaccineDo COVID 19 vaccine and its boostersCa n do RSV vaccine 10/14/2021 : He did provide the telephone # for his daughter Ana and gave permission to discuss his care with her RTC in 4 months, do labs, ER if worse, he and daughter Ana did verbalize his understand ing of the above Hyperlipidemia 52755038 E78.5 On atorvastat in 10mg dailyGet labs Alkaline p hosphatase above reference range 501912164 R74.8 US liver 12/16/2021 US abd: 12/13/2023 Dr Alberto Licona referred to Dr Alfaro Essential hypertension 61360114 I10 On amlodipine 10mg dailyOn lisinopril 40mg daily, d/c this as already on ARBOn valsartan- HCTZ 320-25mg daily Get labs Chronic ki dney disease 191089885 N18.9 On calcitriol On vit D is once a monthSees Dr Alberto HARRIS Hyperbilirubinemia 87324 006 E80.6 US liver: 12/16/2022 US liver: 12/13/2023 Vitamin D deficiency 347 47181 E55.9 Serum qian min B12 below reference range 822161933 R79.89 Get labsNo need for B12 now Leukopenia 03212415 D72. 819 Mild, stable, he does not want any more referrals for this 12/01/2022 , 04/04/2024 , 07/04/2024 Glaucoma 82035901 H40.9 On dorzolamid Barb latanopros Alis eye Health Concerns Section Related Observation LastModified by Organization Detai ls LastModified Time None Recorded Concern Status LastModified by Organization Details LastModified Time None Recorded Advance Directives Directive Y: Payers Insurance Date Sequence Insurance Name Policy Number Policy Abraham Covered Member ID Abraham Member ID Guarantor Name 11/07/2024 2 [place] [id number] Brad Moore [id number] Brad Moore 11/07/2024 2 [place] Brad Moore [id number] Brad Moore 11/07/2024 1 [facility] (MEDICARE REPLACEMENT /ADVANTAGE - HMO) [id number] Brad L Moore [id number] Brad Moore 11/07/2024 2 [place] [id number] Brad Moore [id number] Brad Moore 11/07/2024 2 [place] [id number] Brad Moore [id number] Brad Moore 11/07/2024 2 [place] [id number] Brad Moore [id number] Brad Moore Notes Date Note Type Note Provider Name and Address Organization Details Recorded Time 06/01/2023 text/html Here to establish carePast Hx:HTNHLDReviewed social family and surgical historyHere to discuss above and get labsOV 01/06/2022:Here for his f/u apt, he is doing well, he did do the labs, he is here with his daughter, they did fill out the health care power of deputy attorney general form OV 05/05/2022:Here for his f/u apt, he is doing well today, he did do the labs on 04/28/2022 OV 08/04/2022:Here for his f/u apt, he is doing well, labs done on 07/28/2022 OV 12/01/2022: Here for his routine apt, he is doing well today, he did do the labs on 11/24/2022 OV 06/01/2023: Here for his f/u apt, he is doing well and he did do the labs, he is here with his daughter Misael Hopper MD [address], [address], [place], [address], [facility] [employer] [facility] 06/02/2023 13:08:38 10/05/2023 text/html Here to establish carePast Hx:HTNHLDReviewed social family and surgical historyHere to discuss above and get labsOV 01/06/2022:Here for his f/u apt, he is doing well, he did do the labs, he is here with his daughter, they did fill out the health care power of deputy attorney general form OV 05/05/2022:Here for his f/u apt, he is doing well today, he did do the labs on 04/28/2022 OV 08/04/2022:Here for his f/u apt, he is doing well, labs done on 07/28/2022 OV 12/01/2022: Here for his routine apt, he is doing well today, he did do the labs on 11/24/2022 OV 06/01/2023: Here for his f/u apt, he is doing well and he did do the labs, he is here with his daughter OV 10/05/2023: Here for his routine apt, he is doing well today, he did do the labs, he is here with his daughter Misael Hopper MD [address], [address], [place], [address], [facility] [employer] [facility] 10/05/2023 12:58:29 04/04/2024 text/html Here to establish carePast Hx:HTNHLDReviewed social family and surgical historyHere to discuss above and get labsOV 01/06/2022:Here for his f/u apt, he is doing well, he did do the labs, he is here with his daughter, they did fill out the health care power of deputy attorney general form OV 05/05/2022:Here for his f/u apt, he is doing well today, he did do the labs on 04/28/2022 OV 08/04/2022:Here for his f/u apt, he is doing well, labs done on 07/28/2022 OV 12/01/2022: Here for his routine apt, he is doing well today, he did do the labs on 11/24/2022 OV 06/01/2023: Here for his f/u apt, he is doing well and he did do the labs, he is here with his daughter OV 10/05/2023: Here for his routine apt, he is doing well today, he did do the labs, he is here with his daughter OV 04/04/2024: Here for his f/u apt, he is doing well today, here with his daughter Misael Hopper MD [address] [facility] [address], [place], [address], [employer] [facility] [employer] [facility] 04/04/2024 18:20:20 07/04/2024 text/html Here to establish carePast Hx:HTNHLDReviewed social family and surgical historyHere to discuss above and get labsOV 01/06/2022:Here for his f/u apt, he is doing well, he did do the labs, he is here with his daughter, they did fill out the health care power of deputy attorney general form OV 05/05/2022:Here for his f/u apt, he is doing well today, he did do the labs on 04/28/2022 OV 08/04/2022:Here for his f/u apt, he is doing well, labs done on 07/28/2022 OV 12/01/2022: Here for his routine apt, he is doing well today, he did do the labs on 11/24/2022 OV 06/01/2023: Here for his f/u apt, he is doing well and he did do the labs, he is here with his daughter OV 10/05/2023: Here for his routine apt, he is doing well today, he did do the labs, he is here with his daughter OV 04/04/2024: Here for his f/u apt, he is doing well today, here with his daughter OV 07/04/2024: Here for his routine apt, he is doing very well, here with his daughter Misael Hopper MD [address] [facility], [address], [place], [address], [facility] 07/04/2024 19:00:55 11/07/2024 text/html Here to establish carePast Hx:HTNHLDReviewed social family and surgical historyHere to discuss above and get labsOV 01/06/2022:Here for his f/u apt, he is doing well, he did do the labs, he is here with his daughter, they did fill out the health care power of deputy attorney general form OV 05/05/2022:Here for his f/u apt, he is doing well today, he did do the labs on 04/28/2022 OV 08/04/2022:Here for his f/u apt, he is doing well, labs done on 07/28/2022 OV 12/01/2022: Here for his routine apt, he is doing well today, he did do the labs on 11/24/2022 OV 06/01/2023: Here for his f/u apt, he is doing well and he did do the labs, he is here with his daughter OV 10/05/2023: Here for his routine apt, he is doing well today, he did do the labs, he is here with his daughter OV 04/04/2024: Here for his f/u apt, he is doing well today, here with his daughter OV 07/04/2024: Here for his routine apt, he is doing very well, here with his daughter OV 11/07/2024: Here for his f/u apt, he is here with his daughter, he feels well today Misael Hopper MD [address] [place], [place] [address], [address], [place], [address], [facility] 11/07/2024 12:14:23
[2024-12-20 15:24] LABS: Hematocrit 41.2 % (42.0-52.0); Hemoglobin 13.5 g/dL (14.0-18.0); Immature Granulocyte Percent A 0.4 % (0-0.5); Lymphocytes Absolute Auto 1.28 K/mm3 (0.9-3.2); Mean Corpuscular HGB Conc 32.8 g/dl (32-36); Mean Corpuscular Hemoglobin 30.8 pg (26-34); Mean Corpuscular Volume 94.1 fl (80-100); Nucleated Red Blood Cells Absolute Auto 0.000 K/mm3 (0.0-0.012); Nucleated Red Blood Cells Perc 0.0 % (0.0-0.2); Platelet Count Result 234 k/mm3 (150-375); Red Blood Count 4.38 M/mm3 (4.6-6.20); White Blood Count 5.3 K/mm3 (4.5-10.0)
[2024-12-20 15:41] LABS: Alanine Aminotransferase 22 U/L (6-50); Albumin Level 4.0 g/dL (3.5-5.1); Alkaline Phosphatase 308 U/L (38-126); Anion Gap 5 mmol/L (4-12); Aspartate Amino Transferase 27 U/L (17-59); Bilirubin,Total 1.6 mg/dL (0.2-1.3); Blood Urea Nitrogen 19 mg/dL (9-20); Calcium 9.3 mg/dL (8.4-10.2); Carbon Dioxide 31 mmol/L (22-30); Chloride 107 mmol/L (98-107); Estimated Glomerular Filt Rate 44; Glucose 76 mg/dL (65-110); Magnesium 1.8 mg/dL (1.6-2.3); Potassium 4.0 mmol/L (3.4-5.0); Sodium 143 mmol/L (137-145); Total Protein 6.7 g/dL (6.3-8.2)
[2024-12-20 15:53] LABS: Parathyroid Intact 47.5 pg/mL (14.5-75.2)
[2024-12-20 15:57] LABS: Free T4 Free Thyroxine 1.21 ng/dL (0.78-2.19)
[2024-12-20 16:16] LABS: Thyroid Stimulating Hormone 1.190 uIU/mL (0.465-4.680)
[2024-12-21 09:08] LABS: GGT 15 IU/L (0-65)
[2024-12-24 14:08] LABS: Alkaline Phosphatase 363 IU/L (48-129)
== END 2024-12-20 14:39 | disposition home or self-care (01) ==
PROVIDERS: PCP Internal Medicine; Visit Provider Internal Medicine
DX: R74.8 Abnormal levels of other serum enzymes (principal); I10 Essential (primary) hypertension
CPT/HCPCS: 36415; 80053; 82977; 83735; 83970; 84075; 84080; 84100; 84439; 84443; 85025

== ENCOUNTER 2024-12-24 10:57 | Outpatient (CLI) | payer MEDICARE, SELFPAY ==
--- OUTSIDE RECORDS SUMMARY | 2023-09-29 06:15 | XMS_ITS ---
Author Organization [facility] Address [address] [facility] 61 [facility] [address] [place] [address] Care Team Providers Care Assistant Nurse Manager Name Role Phone Yovanny Dominguez Unavailable [phone] Medications Medication SIG (Take, Route, Frequency, Duration) Notes Start Date End Date Status Vitamin D (Ergocalciferol) 1.25 MG (31083 UT) TAKE 1 CAPSULE BY MOUTH ONE TIME PER WEEK; Duration: 84 Active Calcitriol 0.25 MCG TAKE 1 CAPSULE BY [place] UTH EVERY DAY FOR 90 DAYS; Duration: 90 Active Social History Sex Assigned At : Social History Observation Description Sex Assigned At Male Encounters Encounter Location Date Provider Diagnosis [place] [facility] [address] [facility] 15 [place] [address] 09/29/2023 Yovanny Dominguez Chronic kidney disea se, stage 3a N18.31 ; Cyst of kidney, acquired N28.1 ; Essential (primary) hypertension I10 ; Proteinuria, unspecified R80.9 and Renal osteodystrophy N25.0 Assessments Encounter Date Diagnosis (ICD Code) Assessment Notes Treatment Notes Treatment Clinical Notes Section Notes 09/29/2023 Chronic kidney disease, stage 3a (ICD-10 - N18.31) 09/29/2023 Cyst of kidney, acquired (ICD-10 - N28.1) 09/29/2023 Essential (primary) hypertension (ICD-10 - I10) 09/29/2023 Proteinuria, unspecified (ICD-10 - R80.9) 09/29/2023 Renal osteodystrophy (ICD-10 - N25.0) Plan Of Treatment Next Appt Details Provider Name:Yovanny Singh , 12/30/2024 02:30:00 PM, 2043 [facility], [facility] 15, [place], [address], Progress Notes * Brad SELLERS LDOB:1935 (89 yo M)Acc No.[id number]:09/29/2023 Progress Notes Patient: Brad BOSWELL Provider: Rhea GRECO MD, Elijah.MorenaP, F.A.S.N. :1935 A ge:87 Y S ex:Male Date:09/29/2023 Address:[address] [place] [address], [place] [address] Subjective: * Chief Complaints: * * Medical History: * Medications: T aking Vitamin D (Ergocalciferol) 1.25 MG (10060 UT) Capsule TAKE 1 CAPSULE BY MOUTH ONE TIME PER WEEK , Taking Calcitriol 0.25 MCG Capsule TAKE 1 CAPSULE BY MOUTH EVERY DAY FOR 90 DAYS Objective: * Vitals: Assessment: * Assessment: 1. C hronic kidney disease, stage 3a - N18.31 (Primary) 2 . C yst of kidney, acquired - N28.1 3 . E ssential (primary) hypertension - I10 4 . P roteinuria, unspecified - R80.9 5 . R enal osteodystrophy - N25.0 ? Plan: * Treatment: * Billing Information: * Visit Code: 79440 Office Visit, Est Pt., Level 4. * Procedure Codes: * Electronic signature of Raz Dominguez MD on 12/24/2024 at 01:04 PM VIDEO OPERATOR Sign off status: Pending * Provider: Rhea GRECO MD, Kristen, F.A.S.N. Date: 0 09/29/2023 Generated for Printing/Faxing/eTransmitting on: 02/24/2024 01:04 PM VIDEO OPERATOR
--- OUTSIDE RECORDS SUMMARY | 2024-01-05 07:15 | XMS_ITS ---
Author Organization [facility] Address [address] [place] [address] [place] [address] Care Team Providers Care Mobile Practice Lead Name Role Phone Raul Dominguezjit Unavailable [phone] Social History Sex Assigned At : Social History Observation Description Sex Assigned At Male Encounters Encounter Location Date Provider Diagnosis [place] [facility] 2043 [facility] 15 [place] [address] 01/05/2024 Yovanny Dominguez Chronic kidney disea se, stage 3a N18.31 ; Cyst of kidney, acquired N28.1 ; Essential (primary) hypertension I10 ; Proteinuria, unspecified R80.9 and Renal osteodystrophy N25.0 Assessments Encounter Date Diagnosis (ICD Code) Assessment Notes Treatment Notes Treatment Clinical Notes Section Notes 01/05/2024 Chronic kidney disease, stage 3a (ICD-10 - N18.31) 01/05/2024 Cyst of kidney, acquired (ICD-10 - N28.1) 01/05/2024 Essential (primary) hypertension (ICD-10 - I10) 01/05/2024 Proteinuria, unspecified (ICD-10 - R80.9) 01/05/2024 Renal osteodystrophy (ICD-10 - N25.0) Plan Of Treatment Next Appt Details Provider Name:Yovanny Singh , 12/30/2024 02:30:00 PM, 2043 [facility], [facility] 15, [place], [address], Progress Notes * Brad MOORE LDOB:1935 (89 yo M)Acc No.[id number]:01/05/2024 Progress Notes Patient: Brad BOSWELL Provider: Rhea GRECO MD, F.A.C.P, F.A.S.N. :1935 A ge:88 Y S ex:Male Date:01/05/2024 Address:[address] [place], [place] [address], [facility] Subjective: * Chief Complaints: * * Medical History: Objective: * Vitals: Assessment: * Assessment: 1. C hronic kidney disease, stage 3a - N18.31 (Primary) 2 . C yst of kidney, acquired - N28.1 3 . E ssential (primary) hypertension - I10 4 . P roteinuria, unspecified - R80.9 5 . R enal osteodystrophy - N25.0 ? Plan: * Treatment: * Billing Information: * Visit Code: 50561 Office Visit, Est Pt., Level 4. * Procedure Codes: * Electronic signature of Raz Dominguez MD on 12/24/2024 at 01:05 PM SENIOR POLICY ANALYST Sign off status: Pending * Provider: Rhea GRECO MD, F.A.C.P, F.A.S.N. Date: 03/06/2023 Generated for Printing/Faxing/eTransmitting on: 02/24/2024 01:05 PM SENIOR POLICY ANALYST
--- OUTSIDE RECORDS SUMMARY | 2024-03-29 06:30 | XMS_ITS ---
Author Organization [facility] Address [address] [place] [address] Care Team Providers Care Director [employer]eron[employer] Name Role Phone DominguezEliazarYovanny Unavailable [phone] Medications Medication SIG (Take, Route, Frequency, Duration) Notes Start Date End Date Status Calcitriol 0.25 MCG TAKE 1 CAPSULE BY MO UTH EVERY OTHER DAY; Duration: 90 Active Vitamin D (Ergocalciferol) 1.25 MG (21922 UT) TAKE 1 CAPSULE BY MOUTH ONCE A MONTH; Duration: 90 Activ e Social History Sex Assigned At : Social History Observation Description Sex Assigned At Male Problems Problem Type SNOMED Code ICD Code Onset Dates Problem Status W/U Status Risk Notes Problem Secondary hyperparathyroidism of renal origin (09795123) 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 15 [place] [address] 03/29/2024 Yovanny Dominguez Chronic kidney disea se, stage 3a N18.31 ; Cyst of kidney, acquired N28.1 ; Essential (primary) hypertension I10 ; Proteinuria, unspecified R80.9 ; Renal osteodystrophy N25.0 ; Elevation of levels of liver transaminase levels R74.01 ; 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 and 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 Assessments Encounter Date Diagnosis (ICD Code) Assessment Notes Treatment Notes Treatment Clinical Notes Section Notes 03/29/2024 Chronic kidney disea se, stage 3a (ICD-10 - N18.31) 03/29/2024 Cyst of kidney, acquired (ICD-10 - N28.1) 03/29/2024 Essential (primary) hypertension (ICD-10 - I10) 03/29/2024 Proteinuria, unspecified (ICD-10 - R80.9) 03/29/2024 Renal osteodystrophy (ICD-10 - N25.0) 03/29/2024 Elevation of levels of liver transaminase levels (ICD-10 - R74.01) 03/29/2024 Secondary hyperparathyroidism of renal origin (ICD-10 - N25.81) 03/29/2024 Hypervitaminosis D (ICD-10 - E67.3) Plan Of Treatment Next Appt Details Provider Name:Yovanny Dominguez , 12/30/2024 02:30:00 PM, 2043 [facility] [address], [place], [facility], Progress Notes * Brad SELLERS LDOB:1935 (89 yo M)Acc No.[id number]:03/29/2024 Progress Notes Patient: Brad BOSWELL Provider: Rhea GRECO MD, F.A.C.P, F.A.S.N. :1935 A ge:88 Y S ex:Male Date:03/29/2024 Address:[address] [place] [address] Subjective: * Chief Complaints: * * Medical History: * Medications: T aking Vitamin D (Ergocalciferol) 1.25 MG (94318 UT) Capsule TAKE 1 CAPSULE BY MOUTH ONCE A MONTH , Taking Calcitriol 0.25 MCG Capsule TAKE 1 CAPSULE BY MOUTH EVERY OTHER DAY Objective: * Vitals: Assessment: * Assessment: 1. C hronic kidney disease, stage 3a - N18.31 (Primary) 2 . C yst of kidney, acquired - N28.1 3 . E ssential (primary) hypertension - I10 4 . P roteinuria, unspecified - R80.9 5 . R enal osteodystrophy - N25.0 & #160; 6 . E levation of levels of liver transaminase levels - R74.01 7 .?Secondary hyperparathyroidism of renal origin - N25.81 8 . H ypervitaminosis D - E67.3 Plan: * Treatment: * Billing Information: * Visit Code: 75943 Office Visit, Est Pt., Level 4. * Procedure Codes: * Electronic signature of Raz Dominguez MD on 12/24/2024 at 01:05 PM DISCHARGE SPECIALIST Sign off status: Pending * Provider: Rhea GRECO MD, F.A.C.P, F.A.S.N. Date: 0 03/29/2024 Generated for Printing/Faxing/eTransmitting on: 1 02/24/2024 01:05 PM DISCHARGE SPECIALIST
--- OUTSIDE RECORDS SUMMARY | 2024-04-05 08:00 | XMS_ITS ---
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) Active confirmed Problem Diabetic renal disease (720843118) Type 2 diabetes mellitus with diabetic chronic kidney disease (E11.22) Active confirmed Encounters Encounter Location Date Provider Diagnosis [facility] [facility] [address] [employer] [id number] 04/05/2024 Yovanny Dominguez Chronic kidney disea se, stage 3a N18.31 ; Cyst of kidney, acquired N28.1 ; Essential (primary) hypertension I10 ; Proteinuria, unspecified R80.9 ; Renal osteodystrophy N25.0 ; 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 ; 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 ; Elevation of levels of liver transaminase levels R74.01 ; Primary generalized (osteo)arthritis M15.0 and Type 2 diabetes mellitus with diabetic chronic kidney disease E11.22 Assessments Encounter Date Diagnosis (ICD Code) Assessment Notes Treatment Notes Treatment Clinical Notes Section Notes 04/05/2024 Chronic kidney disea se, stage 3a (ICD-10 - N18.31) 04/05/2024 Cyst of kidney, acquired (ICD-10 - N28.1) 04/05/2024 Essential (primary) hypertension (ICD-10 - I10) 04/05/2024 Proteinuria, unspecified (ICD-10 - R80.9) 04/05/2024 Renal osteodystrophy (ICD-10 - N25.0) 04/05/2024 Secondary hyperparathyroidism of renal origin (ICD-10 - N25.81) 04/05/2024 Hypervitaminosis D (ICD-10 - E67.3) 04/05/2024 Elevation of levels of liver transaminase levels (ICD-10 - R74.01) 04/05/2024 Primary generalized (osteo)arthritis (ICD-10 - M15.0) 04/05/2024 Type 2 diabetes mellitus with diabetic chronic kidney disease (ICD-10 - E11.22) Plan Of Treatment Next Appt Details Provider Name:Yovanny Alberto , 12/30/2024 02:30:00 PM, 2043 [facility] 15[place], [address], Progress Notes * Brad SELLERS LDOB:1935 (89 yo M)Acc No.[id number]:04/05/2024 Progress Notes Patient: Brad BOSWELL Provider: Rhea GRECO MD, F.A.C.P, F.A.S.N. :1935 A ge:88 Y S ex:Male Date:04/05/2024 Address:[address] [place] [address] Subjective: * Chief Complaints: * * Medical History: Objective: * Vitals: Assessment: * Assessment: 1. C hronic kidney disease, stage 3a - N18.31 (Primary) 2 . C yst of kidney, acquired - N28.1 3 . E ssential (primary) hypertension - I10 4 . P roteinuria, unspecified - R80.9 5 . R enal osteodystrophy - N25.0 & #160; 6 . S econdary hyperparathyroidism of renal origin - N25.81 7 . H ypervitaminosis D - E67.3 8 . E levation of levels of liver transaminase levels - R74.01 9 . P rimary generalized (osteo)arthritis - M15.0 1 0. Type 2 diabetes mellitus with diabetic chronic kidney disease - E11.22 Plan: * Treatment: * Billing Information: * Visit Code: 12484 Office Visit, Est Pt., Level 4. * Procedure Codes: * Electronic signature of Raz Dominguez MD on 12/24/2024 at 01:05 PM NUCLEAR SPECTROSCOPIST Sign off status: Pending * Provider: Rhea GRECO MD, F.A.C.P, F.A.S.N. Date: 0 04/05/2024 Generated for Printing/Faxing/eTransmitting on: 1 02/24/2024 01:05 PM NUCLEAR SPECTROSCOPIST
--- OUTSIDE RECORDS SUMMARY | 2024-05-03 07:15 | XMS_ITS ---
Author Organization [facility] Address [address] [address] [place] [address] Care Team Providers Care Coach Mechanic Name Role Phone Alberto Yovanny Unavailable [phone] Social History Sex Assigned At : Social History Observation Description Sex Assigned At Male Problems Problem Type SNOMED Code ICD Code Onset Dates Problem Status W/U Status Risk Notes Problem Elevation of levels of liver transaminase levels (R74.01) Active confirmed Problem Hypernatremia (342052612) Hypernatremia (E87.0) Active confirmed Encounters Encounter Location Date Provider Diagnosis [place] [facility] 2043 [facility] 15 [place] [address] 05/03/2024 Yovanny Dominguez Chronic kidney disea se, stage 3a N18.31 ; Cyst of kidney, acquired N28.1 ; Essential (primary) hypertension I10 ; Proteinuria, unspecified R80.9 ; Renal osteodystrophy N25.0 ; 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 ; 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 ; Primary generalized (osteo)arthritis M15.0 ; Type 2 diabetes mellitus with diabetic chronic kidney disease E11.22 ; Elevation of levels of liver transaminase levels R74.01 and Hypernatremia E87.0 Assessments Encounter Date Diagnosis (ICD Code) Assessment Notes Treatment Notes Treatment Clinical Notes Section Notes 05/03/2024 Chronic kidney disea se, stage 3a (ICD-10 - N18.31) 05/03/2024 Cyst of kidney, acquired (ICD-10 - N28.1) 05/03/2024 Essential (primary) hypertension (ICD-10 - I10) 05/03/2024 Proteinuria, unspecified (ICD-10 - R80.9) 05/03/2024 Renal osteodystrophy (ICD-10 - N25.0) 05/03/2024 Secondary hyperparathyroidism of renal origin (ICD-10 - N25.81) 05/03/2024 Hypervitaminosis D (ICD-10 - E67.3) 05/03/2024 Primary generalized (osteo)arthritis (ICD-10 - M15.0) 05/03/2024 Type 2 diabetes mellitus with diabetic chronic kidney disease (ICD-10 - E11.22) 05/03/2024 Elevation of levels of liver transaminase levels (ICD-10 - R74.01) 05/03/2024 Hypernatremia (ICD-1 0 - E87.0) Plan Of Treatment Next Appt Details Provider Name:Yovanny Alberto , 12/30/2024 02:30:00 PM, 2043 [facility], [facility] [address], [place], [address], Progress Notes * Brad SELLERS LDOB:1935 (89 yo M)Acc No.[id number]:05/03/2024 Progress Notes Patient: Brad BOSWELL Provider: Rhea GRECO MD, F.A.C.P, F.A.S.N. :1935 A ge:88 Y S ex:Male Date:05/03/2024 Address:[address] [place] [address] Subjective: * Chief Complaints: * * Medical [...] H ypervitaminosis D - E67.3 8 . P rimary generalized (osteo)arthritis - M15.0? 9. T ype 2 diabetes mellitus with diabetic chronic kidney disease - E11.22 & #160; 1 0. E levation of levels of liver transaminase levels - R74.01 1 1.?Hypernatremia - E87.0 Plan: * Treatment: * Billing Information: * Visit Code: 31438 Office Visit, Est Pt., Level 4. * Procedure Codes: * Electronic signature of Raz Dominguez MD on 12/24/2024 at 01:06 PM PMO CONSULTANT Sign off status: Pending * Provider: Rhea GRECO MD, F.A.C.P, F.A.S.N. Date: 0 05/03/2024 Generated for Printing/Faxing/eTransmitting on: 1 02/24/2024 01:06 PM PMO CONSULTANT
--- OUTSIDE RECORDS SUMMARY | 2024-07-19 07:00 | XMS_ITS ---
Author Organization [facility] Address [address] [address] [place] [address] Care Team Providers Care Tobacco Sorter Name Role Phone Alberto Yovanny Unavailable [phone] Social History Sex Assigned At : Social History Observation Description Sex Assigned At Male Encounters Encounter Location Date Provider Diagnosis [place] [facility] 2043 [facility] 15 [place] [address] 07/19/2024 Yovanny Dominguez Chronic kidney disea se, stage [...] Treatment Notes Treatment Clinical Notes Section Notes 07/19/2024 Chronic kidney disea se, stage 3a (ICD-10 - N18.31) 07/19/2024 Cyst of kidney, acquired (ICD-10 - N28.1) 07/19/2024 Essential (primary) hypertension (ICD-10 - I10) 07/19/2024 Proteinuria, unspecified (ICD-10 - R80.9) 07/19/2024 Renal osteodystrophy (ICD-10 - N25.0) 07/19/2024 Secondary hyperparathyroidism of renal origin (ICD-10 - N25.81) 07/19/2024 Hypervitaminosis D (ICD-10 - E67.3) 07/19/2024 Primary generalized (osteo)arthritis (ICD-10 - M15.0) 07/19/2024 Type 2 diabetes mellitus with diabetic chronic kidney disease (ICD-10 - E11.22) 07/19/2024 Elevation of levels of liver transaminase levels (ICD-10 - R74.01) 07/19/2024 Hypernatremia (ICD-1 0 - E87.0) Plan Of Treatment Next Appt Details Provider Name:Yovanny Dominguez , 12/30/2024 02:30:00 PM, 2043 [facility] 15, [place], [address], Progress Notes * Brad SELLERS LDOB:1935 (89 yo M)Acc No.[id number]:07/19/2024 Progress Notes Patient: Brad BOSWELL Provider: Rhea GRECO MD, F.A.C.P, F.A.S.N. :1935 A ge:88 Y S ex:Male Date:07/19/2024 Address:[address] [place] [address] Subjective: * Chief Complaints: * * Medical [...] Treatment: * Billing Information: * Visit Code: 94454 Office Visit, Est Pt., Level 4. * Procedure Codes: * Electronic signature of Raz Dominguez MD on 12/24/2024 at 01:05 PM FINANCIAL COORDINATOR Sign off status: Pending * Provider: Rhea GRECO MD, F.A.C.P, F.A.S.N. Date: 0 07/19/2024 Generated for Printing/Faxing/eTransmitting on: 1 02/24/2024 01:05 PM FINANCIAL COORDINATOR
--- OUTSIDE RECORDS SUMMARY | 2024-10-18 07:00 | XMS_ITS ---
Author Organization [facility] Address [address] [address] [place] [address] Care Team Providers Care Flex O Writer Operator Name Role Phone Alberto Yovanny Unavailable [phone] Social History Sex Assigned At : Social History Observation Description Sex Assigned At Male Problems Problem Type SNOMED Code ICD Code Onset Dates Problem Status W/U Status Risk Notes Problem Vitamin D deficiency (52192986) Vitamin D deficiency, unspecified (E55.9) Active confirmed Encounters Encounter Location Date Provider Diagnosis [place] [facility] 2043 [facility] 15 [place] [address] 10/18/2024 Yovanny Dominguez Chronic kidney disea se, stage [...] levels of liver transaminase levels R74.01 ; Hypernatremia E87.0 and Vitamin D deficiency, unspecified E55.9 Assessments Encounter Date Diagnosis (ICD Code) Assessment Notes Treatment Notes Treatment Clinical Notes Section Notes 10/18/2024 Chronic kidney disea se, stage 3a (ICD-10 - N18.31) 10/18/2024 Cyst of kidney, acquired (ICD-10 - N28.1) 10/18/2024 Essential (primary) hypertension (ICD-10 - I10) 10/18/2024 Proteinuria, unspecified (ICD-10 - R80.9) 10/18/2024 Renal osteodystrophy (ICD-10 - N25.0) 10/18/2024 Secondary hyperparathyroidism of renal origin (ICD-10 - N25.81) 10/18/2024 Hypervitaminosis D (ICD-10 - E67.3) 10/18/2024 Primary generalized (osteo)arthritis (ICD-10 - M15.0) 10/18/2024 Type 2 diabetes mellitus with diabetic chronic kidney disease (ICD-10 - E11.22) 10/18/2024 Elevation of levels of liver transaminase levels (ICD-10 - R74.01) 10/18/2024 Hypernatremia (ICD-1 0 - E87.0) 10/18/2024 Vitamin D deficiency , unspecified (ICD-10 - E55.9) Plan Of Treatment Next Appt Details Provider Name:Yovanny Alberto , 12/30/2024 02:30:00 PM, [address], [address], Progress Notes * Brad SELLERS LDOB:1935 (89 yo M)Acc No.[id number]:10/18/2024 Progress Notes Patient: Brad BOSWELL Provider: Rhea GRECO MD, F.A.C.P, F.A.S.N. :1935 A ge:88 Y S ex:Male Date:10/18/2024 Address:[address] [place], [place] [id number] Subjective: * Chief Complaints: Objective: Assessment: * Assessment: 1. C hronic kidney [...] levels - R74.01 1 1.?Hypernatremia - E87.0 1 2. V itamin D deficiency, unspecified - E55.9 ? Plan: * Billing Information: * Visit Code: 48554 Office Visit, Est Pt., Level 4. * Procedure Codes: * Electronic signature of Raz Dominguez MD on 12/24/2024 at 01:05 PM PICK UP AND DELIVERY DRIVER Sign off status: Pending * Provider: Rhea GRECO MD, F.A.C.P, F.A.S.N. Date: 0 10/18/2024 Generated for Printing/Faxing/eTransmitting on: 02/24/2024 01:05 PM PICK UP AND DELIVERY DRIVER
--- NOTE | ~2024-12-24 | XR_ITS ---
XR skull min 4V Indication: R74.8 - Abnormal levels of other serum enzymes Comparison: None Technique: 3 view. Findings: No acute fracture or malalignment. No significant degenerative changes. Soft tissues are unremarkable. Impression: No fracture identified, no lytic or sclerotic lesions appreciated Reviewed, dictated and finalized at location P. OGY PROFESSOR Impression: No fracture identified, no lytic or sclerotic lesions appreciated
--- NOTE | ~2024-12-24 | XR_ITS ---
EXAMINATION: XR tibia fibula RT 2V, 12/24/2024 11:30 TIE UP WORKER HISTORY: R74.8 - Abnormal levels of other serum enzymes COMPARISON: No comparisons available. Findings: No acute fracture or malalignment. No significant degenerative changes. Soft tissues unremarkable. Impression: No acute fracture or malalignment. Reviewed, dictated and finalized at location P. UP WORKER Impression: No acute fracture or malalignment.
--- NOTE | ~2024-12-24 | XR_ITS ---
EXAMINATION: XR tibia fibula LT 2V, 12/24/2024 11:30 CUSTOMER EXPERIENCE SPECIALIST HISTORY: R74.8 - Abnormal levels of other serum enzymes COMPARISON: No comparisons available. Findings: No acute fracture or malalignment. No significant degenerative changes. Soft tissues unremarkable. Impression: No acute fracture or malalignment. Reviewed, dictated and finalized at location P. OMER EXPERIENCE SPECIALIST Impression: No acute fracture or malalignment.
--- NOTE | ~2024-12-24 | XR_ITS ---
EXAMINATION: XR abdomen obstructive series DATE: 12/24/2024 11:47 INDICATION: Abnormal levels of serum enzymes TECHNIQUE: Supine and upright views of the abdomen. FINDINGS: No prior studies for comparison. The visualized lung parenchyma is normal.. There is a nonobstructive bowel gas pattern. Gas and stool are seen throughout the colon to the level of the rectum. There is no free air. There is sclerosis and trabecular thickening of the pelvis, sacrum, consistent with Paget's disease bilaterally. There is dextroscoliosis of the thoracolumbar spine with moderate lumbar spondylosis. Calcified granuloma left lower lobe. IMPRESSION: 1. No acute abdominal abnormality. 2: Paget's disease of the pelvis. Reviewed, dictated and finalized at location O. DENTIAL SALES ASSOCIATE
--- OUTSIDE RECORDS SUMMARY | 2024-12-24 13:05 | XMS_ITS | Patient Health Record ---
Author Organization [facility] Address [address] [place] [address] Care Team Providers Care Laborer Carpentry Dock Name Role Phone Yovanny Dominguez Unavailable [phone] Reason For Referral No Information Medications Medication SIG (Take, Route, Frequency, Duration) Notes Start Date End Date Status Calcitriol 0.25 MCG TAKE 1 CAPSULE BY MO UTH EVERY OTHER DAY; Duration: 90 Active Vitamin D (Ergocalciferol) 1.25 MG (69769 UT) TAKE 1 CAPSULE BY MOUTH ONCE A MONTH; Duration: 90 Activ e Social History Sex Assigned At : Social History Observation Description Sex Assigned At Male Problems Problem Type SNOMED Code ICD Code Onset Dates Problem Status W/U Status Risk Notes Problem Diabetic renal disease (923328887) Type 2 diabetes mellitus with diabetic chronic kidney disease (E11.22) Active confirmed Problem Vitamin D deficiency (37137266) Vitamin D deficiency, unspecified (E55.9) Active confirmed Problem Hypervitaminosis D (79431099) 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) Active confirmed Problem Essential hypertension (75556848) Essential (primary) hypertension (I10) Active confirmed Problem Primary generalised osteoarthritis (325657909) Primary generalized (osteo)arthritis (M15.0) Active confirmed Problem Renal osteodystrophy (66599553) Renal osteodystrophy (N25.0) Active confirmed Problem Secondary hyperparathyroidism of renal origin (31934245) Secondary hyperparathyroidism of renal origin (N25.81) Active confirmed Problem Acquired renal cysti c disease (663536298) Cyst of kidney, acquired (N28.1) Active confirmed Problem Proteinuria (57832773) Proteinuria, unspecified (R80.9) Active confirmed Problem Hypernatremia (369933480) Hypernatremia (E87.0) Active confirmed Problem Chronic kidney disease stage 3A (disorder) (982532695) Chronic kidney disease, stage 3a (N18.31) Active confirmed Problem Elevation of lev els of liver transaminase levels (R74.01) Active confirmed Encounters Encounter Location Date Provider Diagnosis [facility] [address] [place] [address] 01/05/2024 Yovanny Dominguez Chronic kidney disea se, stage 3a N18.31 ; Cyst of kidney, acquired N28.1 ; Essential (primary) hypertension I10 ; Proteinuria, unspecified R80.9 and Renal osteodystrophy N25.0 [facility] [address] [place] [address] 03/29/2024 Yovanny Dominguez Chronic kidney disea se, stage 3a N18.31 ; Cyst of kidney, acquired N28.1 ; Essential (primary) hypertension I10 ; Proteinuria, unspecified R80.9 ; Renal osteodystrophy N25.0 ; Elevation of levels of liver transaminase levels R74.01 ; 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 and 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 [facility] [address] [place] [address] 04/05/2024 Yovannyagustin Dominguez Chronic kidney disea se, [...] mellitus with diabetic chronic kidney disease E11.22 [facility] [address] [place] [address] 05/03/2024 Yovannyagustin Dominguez Chronic kidney disea se, [...] liver transaminase levels R74.01 and Hypernatremia E87.0 [facility] [address] [place] [id number] 07/19/2024 Yovanny Dominguez Chronic kidney disea se, [...] liver transaminase levels R74.01 and Hypernatremia E87.0 [facility] [address] [address] 10/18/2024 Yovanny Dominguez Chronic kidney disea se, [...] Name:Yovanny Dominguez , 12/30/2024 02:30:00 PM, [address], [facility] [address], [place], [address],
[2024-12-24 19:54] LABS: Creatinine 24 Hour Urine 1.3 gm/24 (1.0-2.0); Total Volume 24 Hour Urine 800 ml
[2024-12-25 11:09] LABS: Calcium, Urine 5.3 mg/dL (Not Estab.)
== END 2024-12-24 10:58 | disposition home or self-care (01) ==
PROVIDERS: PCP Internal Medicine; Visit Provider Internal Medicine
DX: R74.8 Abnormal levels of other serum enzymes (principal); I10 Essential (primary) hypertension; M88.88 Osteitis deformans of other bones
CPT/HCPCS: 70260; 73590; 74019; 81050; 82340; 82570